=== PATIENT | male | born 1950 | race Caucasian/White ===

== ENCOUNTER 2021-04-10 09:24 | Outpatient (REF) | payer MEDICARE, SELFPAY ==
[2021-04-10 10:25] LABS: MANUAL DIFF FLAG NO
[2021-04-10 10:32] LABS: Basophils Percent Auto 0.7 % (0-2); Eosinophils Absolute Auto 0.2 X10*3/uL (0.0-0.4); Eosinophils Percent Auto 4.1 % (0-4); Hematocrit 44.1 % (42-52); Hemoglobin 15.2 g/dl (14.0-18.0); Imm Gran Abs Auto 0.04 X10*3/uL (0.00-0.03); Lymphocytes Absolute Auto 0.6 X10*3/uL (1.2-4.9); Lymphocytes Percent Auto 14.3 % (20-40); Mean Corpuscular HGB Conc 34.5 g/dl (31.0-36.0); Mean Corpuscular Volume 95.9 fL (80-98); Mean Platelet Volume 9.5 fL (9.4-12.4); Monocytes Absolute Auto 0.4 X10*3/uL (0.1-1.2); Monocytes Percent Auto 8.6 % (2-11); Neutrophils Percent Auto 71.3 % (45-73); Platelet Count 161 X10*3/uL (160-400); Red Cell Distribution Width 12.9 % (11.0-16.0); White Blood Count 4.2 X10*3/uL (4.8-10.8)
[2021-04-10 10:52] LABS: Alanine Aminotransferase 29 U/L (0-40); Albumin Level 4.4 g/dL (3.5-5.0); Alkaline Phosphatase 66 U/L (39-117); Anion Gap 14 (12-20); Aspartate Amino Transferase 32 U/L (5-37); Bilirubin Total 1.3 mg/dL (0.0-1.0); Blood Urea Nitrogen 10 mg/dL (9-16); Calcium 9.5 mg/dL (8.4-10.2); Carbon Dioxide 27 mmol/L (22-29); Chloride 106 mmol/L (96-108); Cholesterol 219 mg/dL; Estimated Glomerular Filt Rate > 60; Glucose Fasting 85 mg/dL (60-99); HDL Cholesterol 68 mg/dL; LDL Cholesterol Calculated 141 mg/dl; Potassium 4.6 mmol/L (3.3-5.1); Sodium 142 mmol/L (135-145); Total Protein 6.6 g/dL (6.5-8.0); Triglycerides 54 mg/dL
[2021-04-10 11:29] LABS: Prostate Specific Antigen Scr 4.37 ng/mL (<0.05-4.0)
== END 2021-04-10 09:25 | disposition home or self-care (01) ==
LOC: HO.10HDL 09:24
PROVIDERS: Visit Provider Internal Medicine
DX: E78.00 Pure hypercholesterolemia, unspecified (principal); N40.0 Benign prostatic hyperplasia without lower urinary tract symptoms; R63.4 Abnormal weight loss; Z12.5 Encounter for screening for malignant neoplasm of prostate
CPT/HCPCS: 36415; 80053; 80061; 84153; 85025

== ENCOUNTER 2021-11-11 07:24 | Day surgery (SDC) | payer MEDICARE, SELFPAY ==
[2021-11-04 15:16] VITALS: BMI 22.9
--- NOTE | 2021-11-10 11:48 | P.CONAN_ITS ---
HPI - Anesthesia Eval Consult details Narrative: 71yo M for Colonoscopy [facility] [place] Past Medical History Medical History (Updated 11/04/21 @ 15:16 by Ellen Steinberg, RN) Basal cell carcinoma Elevated cholesterol Surgical History Surgical History (Updated 11/04/21 @ 15:18 by Ellen Steinberg, RN) H/O colonoscopy History of back surgery Hx of Achilles tendon repair Hx of varicose vein ligation Hx of wisdom tooth extraction Social History Social History Patient Tobacco Use Status: Current everyday Tobacco user Tobacco use type: Cigarette Cigarettes Per Day: 3 Use of substances other than those prescribed or required for medical reasons: Yes Substance Use Frequency: Occasionally Are you DNR?: No Advance Directives: No Advance Directives Information Provided: Yes Meds Allergies Allergy/AdvReac Type Severity Reaction Status Date / Time No Known Allergies Allergy Mild Unverified 03/21/20 15:04 Home Medications Medication Instructions Recorded Confirmed Last Taken Type sildenafil 50 mg tablet 1 tab PO DIRECTED 11/04/21 11/04/21 Unknown History Exam Exam Date and Time: November 10, 2021 1148 Height,Weight and Vital Signs: Height 5 ft 7.75 in Weight 68.039 kg Pertinent Lab Results Pertinent Lab Results: Laboratory Tests 04/10/21 04/10/21 09:30 09:30 WBC 4.2 L Hgb 15.2 Hct 44.1 Plt Count 161 Sodium 142 Potassium 4.6 Chloride 106 Carbon Dioxide 27 BUN 10 Creatinine 0.73 Assessment and Plan Assessment Anesthesia Assessment: Chart Reviewed
[2021-11-11 07:35] VITALS: BP 158/84; PULSE 63; RESP 16; TEMP 36.4; O2SAT 98
--- NOTE | 2021-11-11 08:07 | P.CONAN_ITS ---
[facility] Past Medical History Medical History (Updated 11/04/21 @ 15:16 by Ellen Steinberg RN) Basal cell carcinoma Elevated cholesterol Family History Family history of problems with anesthesia: No Surgical History Surgical History (Updated 11/04/21 @ 15:18 by Ellen Steinberg RN) H/O colonoscopy History of back surgery Hx of Achilles tendon repair Hx of varicose vein ligation Hx of wisdom tooth extraction History of Problems with Anesthesia: No Social History Social History Patient Tobacco Use Status: Current everyday Tobacco user Tobacco use type: Cigarette Cigarettes Per Day: 3 Use of substances other than those prescribed or required for medical reasons: Yes Substance Use Frequency: Occasionally Are you DNR?: No Advance Directives: No Advance Directives Information Provided: Yes Meds Allergies Allergy/AdvReac Type Severity Reaction Status Date / Time No Known Allergies Allergy Mild Unverified 03/21/20 15:04 Active Medications: Current Medications Lactated Ringer's (Lr) 1,000 mls @ 100 mls/hr IVCONT .Q10H [facility] Home Medications Medication Instructions Recorded Confirmed Last Taken Type sildenafil 50 mg tablet 1 tab PO DIRECTED 11/04/21 11/04/21 Unknown History Exam Exam Date and Time: November 11, 2021 0807 Height,Weight and Vital Signs: Height 5 ft 7.75 in Weight 68.039 kg Last Vital Signs Temp 97.6 F 11/11/21 07:35 Pulse 63 11/11/21 07:35 Resp 16 11/11/21 07:35 BP 158/84 H 11/11/21 07:35 Pulse Ox 98 11/11/21 07:35 Airway Mallampati Class: II TM Dist: >3cm Neck ROM: Full Assessment and Plan Assessment Anesthesia Assessment: Anesthesia Plan Discussed, Smoking Cess. Discussed and Chart Reviewed Final Anesthetic Review Family History of Problems with Anesthesia: No History of Problems with Anesthesia: No NPO: Yes ASA Class: II Final Preanesthetic Review: No Changes in Pt Med Stat, Meds/Allgs Chart Reviewed, Consent Obtained/Reviewed and Anes Risks/Benef Reviewed Patient Risk: Low (O) Procedure Risk: Low Anesthetic Plan Anesthetic Plan: MAC: Disposition: Standard PACU
[2021-11-11] MEDS: Lactated Ringers 1,000 ML 100 ML IVCONT (08:16)
--- NOTE | 2021-11-11 08:42 | MHC.SHP ---
Pre-Procedural Eval Section A Date of Service: 11/11/21 Section B Chief Complaint: screening Details of Present Illness: see H&P no changes Relevant Family History (Specify if Yes): No Relevant Social History: None Present Medications: see Short Stay Collaborative assessment Medical History: No relevant PMH History of Previous Operations: No relevant previous surgery Allergies: Allergies Allergy/AdvReac Type Severity Reaction Status Date / Time No Known Allergies Allergy Mild Unverified 03/21/20 15:04 Review of Systems Sugical H&P ROS: Negative: Constitution, Cardiovascular, Respiratory, Neurological, Psychiatric, Hem-Onc, Allergic/Immunologic, Gastrointestinal, Genitourinary, Musculoskeletal, Integumentary, Endocrine and Eyes/Ears/Nose/Throat Exam Surgical H&P Exam: Normal: HEENT, Normal: Heart, Normal: Lungs, Normal: Extremities, Normal: Abdomen, Normal: Skin and Normal: Neurological Plan Diagnosis/Plan: Unchanged I have reviewed the history and physical and performed a pertinent physical examination on my patient. No changes have occurred unless specified.
[2021-11-11 09:59] VITALS: BP 106/66; PULSE 57; RESP 12; TEMP 36.4; O2SAT 98
--- NOTE | 2021-11-11 10:09 | PM.OP ---
Brief Operative Note Date of Service: 11/11/21 Pre-op diagnosis: screening Post-op diagnosis: same (colon polyps) Surgeon: Yonatan Stallings Anesthesia: MAC Was an Triple Air Valve Tester used for this Procedure?: No Estimated blood loss (mL): 2 Pathology: other (see req) Condition: stable Disposition: PACU
[2021-11-11 10:14] VITALS: BP 119/73; PULSE 58; RESP 16; O2SAT 99
[2021-11-11 10:29] VITALS: BP 128/80; PULSE 57; RESP 16; TEMP 36.3; O2SAT 99
--- NOTE | 2021-11-11 10:56 | PC.NURSE ---
PATIENT ARRIVED TO DISCHARGE AREA REPORTING LEFT EYE IRRITATION AND WATERING. PATIENT STATES HIS LEFT EYE WAS NOT LIKE THIS PRIOR TO PROCEDURE. ANESTHESIOLOGIST REQUESTED TO COME AND ACCESS PATIENT.
--- NOTE | 2021-11-11 11:06 | PC.NURSE ---
PATIENT EVALUATED PATIENT PRIOR TO HIS DISCHARGE AND PATIENT TO REPORT WORSENING SYMPTOMS. PT ALSO TOLD TO GO TO THE ED WITH ANY WORSENING SYMPTOMS.
--- NOTE | 2021-11-11 11:33 | PC.NURSE ---
DR. WARREN RE-ASSESSED PATIENT PRIOR TO DISCHARGE.
--- NOTE | 2021-11-11 20:54 | OP_ITS ---
SURGEON: Yonatan Stallings MD INDICATIONS: Colon cancer screening and prior history of adenomatous colon polyps. PREOPERATIVE DIAGNOSIS: POSTOPERATIVE DIAGNOSIS: PROCEDURE PERFORMED: Colonoscopy to the terminal ileum with snare polypectomy and biopsy. ESTIMATED BLOOD LOSS: COMPLICATIONS: ANESTHESIA: ASSISTANTS: SPECIMENS: MEDICATIONS: Monitored anesthesia care. DESCRIPTION OF PROCEDURE: History and physical were performed. The risks and benefits of the procedure were explained to the patient. Informed consent was obtained. The patient was placed in the left lateral decubitus position. A digital rectal exam was performed and was found to be normal. The Olympus pediatric video colonoscope was introduced into the rectum and advanced to the cecum without difficulty. The cecum was identified by transillumination, palpation, and identification of the ileocecal valve. Examination was performed. The scope was removed. He tolerated the procedure well and was taken to recovery area in stable condition. FINDINGS: The colon was quite tortuous and there was a lot of intestinal muscle spasm, which made the procedure extended. Multiple colonic polyps were identified and removed using a combination of snare and biopsy forceps. These were located at 120 cm, 100 cm, and 55 cm from the anal verge. The largest measured approximately 15 mm and the smallest was less than 5 mm. A fourth polyp at the right colon could not be recovered after being snared, measuring approximately 6 mm. In the rectum was a hypertrophic anal papilla, which prolapsed at the level of the anal verge. This was biopsied. The quality of the prep was good. No other polyps were identified. IMPRESSION: Colon polyps. RECOMMENDATION: Follow up the biopsy results. MD SAVI Cosby/ABL / [id number] MTDD
== END 2021-11-11 11:35 | disposition home or self-care (01) ==
PROVIDERS: PCP Internal Medicine; Visit Provider Internal Medicine Gastroenterology
PROC: 0DJD8ZZ Inspection of Lower Intestinal Tract, Via Natural or Artificial Opening Endoscopic (ICD-10-PCS; CPT 45378; principal; 2021-11-11 08:40)
DX: Z12.11 Encounter for screening for malignant neoplasm of colon (principal); Z86.010 Personal history of colon polyps; Z80.0 Family history of malignant neoplasm of digestive organs; D12.3 Benign neoplasm of transverse colon; D12.5 Benign neoplasm of sigmoid colon; K63.5 Polyp of colon; K62.89 Other specified diseases of anus and rectum; E78.00 Pure hypercholesterolemia, unspecified; R97.20 Elevated prostate specific antigen [PSA]; Z79.899 Other long term (current) drug therapy; Z85.828 Personal history of other malignant neoplasm of skin; F17.210 Nicotine dependence, cigarettes, uncomplicated; Z98.890 Other specified postprocedural states
CPT/HCPCS: 45385; 45380; 88305

== ENCOUNTER 2022-12-24 08:36 | Outpatient (REF) | payer MEDICARE, SELFPAY ==
[2022-12-24 10:38] LABS: MANUAL DIFF FLAG NO
[2022-12-24 11:06] LABS: Eosinophils Absolute Auto 0.1 X10*3/uL (0.0-0.4); Eosinophils Percent Auto 3.4 % (0-4); Hematocrit 43.2 % (42.0-52.0); Hemoglobin 15.1 g/dl (14.0-18.0); Imm Gran Abs Auto 0.03 X10*3/uL (0.00-0.03); Imm Gran Pct Auto 0.7 % (0.0-0.4); Lymphocytes Absolute Auto 0.5 X10*3/uL (1.2-4.9); Lymphocytes Percent Auto 12.4 % (20-40); Mean Corpuscular Hemoglobin 33.9 pg (27.0-33.0); Mean Corpuscular Volume 97.1 fL (80.0-98.0); Mean Platelet Volume 9.6 fL (9.4-12.4); Monocytes Absolute Auto 0.3 X10*3/uL (0.1-1.2); Monocytes Percent Auto 7.6 % (2-11); Neutrophils Absolute Auto 3.1 x10*3/uL (2.0-8.3); Neutrophils Percent Auto 74.9 % (45-73); Platelet Count 157 X10*3/uL (160-400); Red Blood Count 4.45 X10*6/uL (4.60-5.80); White Blood Count 4.1 X10*3/uL (4.8-10.8)
[2022-12-24 12:22] LABS: Prostate Specific Antigen 4.78 ng/mL (<0.05-4.0)
[2022-12-24 12:30] LABS: Alanine Aminotransferase 21 U/L (0-40); Albumin Level 4.4 g/dL (3.5-5.0); Alkaline Phosphatase 67 U/L (39-117); Anion Gap 11 (12-20); Aspartate Amino Transferase 28 U/L (5-37); Bilirubin Total 1.6 mg/dL (0.0-1.0); Blood Urea Nitrogen 9 mg/dL (9-16); Calcium 8.9 mg/dL (8.4-10.2); Carbon Dioxide 27 mmol/L (22-29); Chloride 108 mmol/L (96-108); Cholesterol 213 mg/dL; Estimated Glomerular Filt Rate > 60; Glucose Fasting 72 mg/dL (60-99); HDL Cholesterol 67 mg/dL; LDL Cholesterol Calculated 128 mg/dl; Sodium 142 mmol/L (135-145); Total Protein 6.9 g/dL (6.5-8.0); Triglycerides 90 mg/dL
== END 2022-12-24 08:37 | disposition home or self-care (01) ==
LOC: HO.10HDL 08:36
PROVIDERS: Visit Provider Internal Medicine
DX: E78.00 Pure hypercholesterolemia, unspecified (principal); R53.83 Other fatigue; R35.1 Nocturia; Z12.5 Encounter for screening for malignant neoplasm of prostate
CPT/HCPCS: 36415; 80053; 80061; 84153; 85025

== ENCOUNTER 2023-06-04 09:44 | Outpatient (REF) | payer MEDICARE, SELFPAY ==
--- NOTE | ~2023-06-04 | XR_ITS ---
EXAMINATION: XR LUMBOSACRAL SPINE CLINICAL INFORMATION: Left sciatica. COMPARISON: Radiographs dated 08/15/2005. TECHNIQUE: AP and lateral views of the lumbar spine and lateral view of the lumbosacral junction. FINDINGS: Vertebral body heights are normal. At L3-L4 and L4-L5, there is marked disc space narrowing, with vacuum phenomenon. At L5-S1, there is marked disc space narrowing, with vacuum phenomenon and a 5 mm retrolisthesis. No acute fracture or spondylolisthesis is seen. There are Schmorl's nodes of the L2 and L3 lower endplates. There is multi-level marked lumbar spondylosis and facet arthropathy. The paravertebral soft tissues are unremarkable. XR/XR lumbar spine 2-3V IMPRESSION: There is multi-level lower thoracic and lumbar degenerative disc disease, spondylosis and facet arthropathy. Degenerative disc disease is most pronounced extending from L3-L4 through L5-S1, where it is severe.
== END 2023-06-04 09:45 | disposition home or self-care (01) ==
LOC: HO.XRAY 09:44
PROVIDERS: Visit Provider Internal Medicine
DX: M54.32 Sciatica, left side (principal)
CPT/HCPCS: 72100

== ENCOUNTER 2023-07-07 08:45 | Outpatient (AMB) | payer MEDICARE, SELFPAY ==
--- NOTE | 2023-07-07 09:11 | A.SPINEOV_ITS ---
Intake Intake Visit Reasons: low back pain Intake Note: Mr. Rodriguez is here today c/o left-sided sciatica pain running down left leg. MRI done @ [facility]. 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 Vuong, Thank you for referring Ezio to our office today. He is a pleasant 73-year-old male who comes in today with a chief complaint of left-sided hip and ankle pain. He reports that his pain began abruptly 6 months ago when he awoke one morning and felt concurrent pain in his left buttocks and left ankle. He reports no inciting incident. He does have a pertinent past medical history of a cervical spinal fusion surgery done [address] Pilar otero at [facility]. He reports that bending/lifting aggravate his pain, and that lying down or standing up straight help to alleviate his symptoms. He reports he has attempted to utilize hiir-aof-tyguthh medications such as Tylenol, ibuprofen, and iqaz-mgn-wwwbmoa pain patches without significant relief of symptoms. He is currently prescribed prednisone and tramadol to help alleviate his symptoms. PMH: History of left-sided Achilles tendon repair. History of unspecified cervical spinal fusion surgery as listed above. Social hx: Patient is a former smoker, previously smoked 3 cigars per day, reports no substance use. Medications: Prednisone, tramadol. Allergies: NKDA. Physical exam: The patient has 5/5 strength in his upper and lower extremities. He reports some numbness over his left ankle that is associated with his pain symptoms. The rest of his sensation is grossly intact. His reflexes are 2+ and intact. He is able to ambulate well and rises from a seated position slowly but without notable difficulty. He has a weakly (+) Shanice's bilaterally, and a weakly (+) straight leg raise on the left. (-) Crawford's, (-) clonus. Imaging review: MRI of the lumbar spine completed at [facility] shows diffuse spondylosis of the lumbar spine. The patient has severe central canal stenosis at L3-4, L4-5. Overall loss of disc height, and severe left-sided foraminal stenosis / moderate right-sided foraminal stenosis noted at these levels. There is also a broad-based protrusion at this level consistent with a likely disc herniation. Impression: The patient is a 73-year-old male who comes in today with a chief complaint of pain in his left posterior buttocks and anterior ankle. He states that the pain began abruptly 6 months ago without any inciting incident. He reports the pain is worse when lifting/bending and is better with standing/lying down. His history and physical are most consistent with a left L5 nerve root impingement. We would like to get a CT scan of the lumbar spine to better evaluate if this impingement is due to a current or calcified herniated disc as there is some artifact at this level. Once the CT scan is obtained we will discuss the possibility of a L3-4 and L4-5 decompression with possible excision of herniated intervertebral disc. This decision will need to be made by Dr. Belcher after reviewing his imaging. Thank you for allowing us to care for your patient. The total time spent with this visit with this patient was 48 minutes reviewing history, physical exam, MRI imaging review, and implementation of treatment plan or further diagnostic testing Jair Belcher MD,PhD [facility] Orders: Orders CT lumbar spine wo IV con 07/07/23 M54.16 - Radiculopathy, lumbar region Referrals Pain Management Referral M54.16 - Radiculopathy, lumbar region Coding Level of Care Code New Pt Level 4 (85663) Diagnoses Lumbar radiculopathy M54.16
== END 2023-07-07 09:44 | disposition home or self-care (01) ==
PROVIDERS: PCP Internal Medicine; Referring Provider Internal Medicine; Visit Provider Neurological Surgery
DX: M54.16 Radiculopathy, lumbar region (principal)
CPT/HCPCS: 99204

== ENCOUNTER → 2023-07-07 08:45 | Outpatient (BNVA) | payer MEDICARE, SELFPAY | PROVIDERS: PCP Internal Medicine; Visit Provider Neurological Surgery | DX: M54.16 Radiculopathy, lumbar region (principal) | CPT/HCPCS: 99202 ==

== ENCOUNTER 2023-07-13 10:49 | Outpatient (AMB) | payer MEDICARE, SELFPAY ==
--- NOTE | 2023-07-13 10:55 | MHC.OFFVIS ---
Intake Vital Signs 07/13/23 10:57 Height 5 ft 7 in Weight 145 lb BMI 22.7 Blood Pressure Location Lt brachial Position Sitting Respiration 12 Pulse 86 Pulse Source Pulse Oximeter Pulse Oximetry (%) 98 Oxygen Delivery Method Room Air Intake Visit Reasons: Radiculopathy, lumbar region Allergies No Known Allergies Allergy (Mild, Verified 07/13/23 10:58) Medication List - Last Reconciled 07/13/23 by Jolene Topete LPN sildenafil 1 tab PO DIRECTED tramadol mg PO HPI HPI Comments History of Present Illness Details Ezio is a very pleasant 73-year-old male who presents the office today for evaluation and management of left lower back pain. Patient reports that he has been suffering with lower back pain for many years, it seemed to get worse over the summer. Then approximately 6-8 weeks ago the pain increased after he works outside in his yard raking leaves. Patient endorses left lower back pain with radiation down the left leg to the ankle. Pain is worse with sitting, bending and crossing his leg. He reports that trying to put his socks on in the morning is excruciating. Patient reports numbness and stabbing pain down the left leg. He has tried nonsteroidal anti-inflammatory medication which did not help, prednisone which did not help and tramadol which provided limited benefit for a short time. Is not able to complete physical therapy as he cannot lift his leg, cross his legs or bend over without excruciating pain. Pain today is rated as a 9/10, intermittent, worse in the morning, during the day and in the. He gets some relief from the pain when lying flat in bed. In terms of muscle damage condition is described as stabbing, sharp and numb. Pain is negatively impacting patient's internal left, general activity, work, normal work, recreational activities, walking and sitting. Recent MRI was reviewed, results as per below. Patient was evaluated by [facility] and referred here for consideration of L5 transforaminal epidural steroid injection [facility] Medical History (Updated 07/13/23 @ 11:31 by Tracy Sanders APRN, [employer]) Basal cell carcinoma Elevated cholesterol Surgical History (Updated 11/04/21 @ 15:18 by Ellen Steinberg RN) Hx of varicose vein ligation Hx of wisdom tooth extraction History of back surgery Hx of Achilles tendon repair H/O colonoscopy Social History Patient Tobacco Use Status: Current everyday Tobacco user Tobacco use type: Cigarette Cigarettes Per Day: 3 Review of Systems Const All systems reviewed & are unremarkable except as noted in HPI and below Physical Exam Vital Signs: Last Vital Signs Pulse 86 07/13/23 10:57 Resp 12 07/13/23 10:57 Pulse Ox 98 07/13/23 10:57 Oxygen Delivery Method Room Air 07/13/23 10:57 BMI result Body Mass Index 22.7 General: awake, alert, oriented. Answers questions appropriately. Fully engaged in examination. Skin: warm, dry, intact HEENT: Normocephalic. Hearing intact. Cardiac: External chest normal in appearance. Respiratory: No cough, audible wheezing or stridor. Abdomen: without gross distension. MS: No obvious swelling or deformities. Able to transition from sit to stand unassisted, slowly and purposefully Ambulates with bilaterally normal heel strike and toe off 5/5 Strength BLE Shanice + bilaterally SLR with dorsifelxion + left increased pain with forward flexion, improved with extension Nontender over PSIS Neurological: Oriented to person, place, time and situation. Thought process intact. No gait abnormalities appreciated. Psychiatric: Appropriate mood and affect. Good judgment and insight. Results Reviewed Results Reviewed: 06/11/2023 MRI LS without FINDINGS: Normal lumbar alignment is demonstrated. Moderate to advanced degenerative disc space narrowing throughout the lumbar spine present. Type I Modic changes seen across the L3-4 disc space. Type II Modic changes seen across the L4-5 and L5-S1 disc spaces. Vertebral heights are well maintained. Bone marrow signal is within normal limits, and no suspicious osseous lesion is identified. Conus medullaris is unremarkable. Paraspinal soft tissues and visualized portions of the abdomen and pelvis are unremarkable. L1-2 level reveals diffuse annular bulge and mild facet arthrosis causing mild bilateral subarticular recess narrowing. Neural foramina intact. L2-3 level reveals diffuse annular bulge and mild facet arthrosis causing moderate bilateral subarticular recess narrowing with contact of the descending nerve roots. There is moderate left neural foraminal narrowing with impingement of the exiting left nerve root. Right neural foramen intact. L3-4 level reveals broad-based protrusion and advanced facet arthrosis causing severe central canal stenosis and broad-based foraminal protrusion seen resulting in advanced bilateral neural foraminal narrowing with impingement of the exiting nerve roots bilaterally. L4-5 level reveals broad-based protrusion and advanced facet arthrosis causing severe central canal stenosis and broad-based foraminal protrusion seen resulting in advanced bilateral neural foraminal narrowing with impingement of the exiting nerve roots bilaterally. L5-S1 level reveals a broad-based disc protrusion and moderate to advanced facet arthrosis present. There is mild bilateral subarticular recess narrowing with contact of the descending nerve roots, left greater than right. Advanced bilateral neural foraminal narrowing with impingement of the exiting nerve roots bilaterally are present. IMPRESSION: 1. Moderate to advanced degenerative changes lumbar spine with multilevel advanced neural foraminal impingement and subarticular recess narrowing as described. Severe central canal stenosis L4-5 level. 2. Modic type II Modic changes seen L4-5 and L5-S1 disc spaces. 3. Modic type I changes seen across the L3-4 disc space. Assessment & Plan Assessment & Plan (1) Lumbar radiculopathy: Code(s): M54.16 - Radiculopathy, lumbar region (2) Post laminectomy syndrome: Code(s): M96.1 - Postlaminectomy syndrome, not elsewhere classified Plan Ezio is a very pleasant 73-year-old male presented to the office review management of his lower back pain. [facility] of L5 transforaminal epidural steroid injection. He has exhausted 6 months of conservative therapy including qchd-ogc-kqyqzqa medications, nonsteroidal anti-inflammatory medications, prescription medications including prescription opioid medications. He is not able to tolerate physical therapy due to the pain. Discussed options for treatment including diagnostic interventional testing, epidural steroid injections, peripheral nerve stimulation with Sprint, RFA and more permanent neuromodulation. Will schedule for fluoroscopy guided left L5 transforaminal epidural steroid injection with local anesthetic. All questions and concerns have been answered and patient agrees with the plan. Follow up after injections and sooner if needed. Coding Level of Care Code New Pt Level 4 (25980) Diagnoses Lumbar radiculopathy M54.16 Post laminectomy syndrome M96.1
[2023-07-13 10:57] VITALS: PULSE 86; RESP 12; O2SAT 98; BMI 22.7
== END 2023-07-13 11:41 | disposition home or self-care (01) ==
PROVIDERS: PCP Internal Medicine; Visit Provider Registered Nurse Emergency
DX: M54.16 Radiculopathy, lumbar region (principal); M96.1 Postlaminectomy syndrome, not elsewhere classified
CPT/HCPCS: 99204

== ENCOUNTER → 2023-07-13 10:49 | Outpatient (BNVA) | payer MEDICARE, SELFPAY | PROVIDERS: PCP Internal Medicine; Visit Provider Registered Nurse Emergency | DX: M54.16 Radiculopathy, lumbar region (principal); M96.1 Postlaminectomy syndrome, not elsewhere classified | CPT/HCPCS: 99202 ==

== ENCOUNTER 2023-07-15 07:37 | Outpatient (REF) | payer MEDICARE, SELFPAY ==
--- NOTE | ~2023-07-15 | CT_ITS ---
EXAMINATION: CT LUMBAR SPINE WITHOUT CONTRAST CLINICAL INFORMATION: Radiculopathy, lumbar region. COMPARISON: None TECHNIQUE: Helical non-contrast CT images were obtained through the lumbar spine without contrast. Multiplanar reformats were rendered and reviewed. This CT examination was performed using dose optimization techniques as appropriate, variously including the following: *Automated exposure control *Adjustment of mA and/or kV according to patient size (this includes techniques or standardized protocols for targeted exams where dose is matched to indication/reason for exam; i.e. extremities or head) *Use of iterative reconstruction technique DLP: 452 mGy-cm FINDINGS: The lumbar vertebral bodies demonstrate normal heights and alignment. There is severe disc height loss at L3-L4, L4-L5, and L5-S1 with advanced degenerative endplate changes. Multilevel prominent anterior endplate osteophytes are seen from T12 through S1. There is multilevel facet arthropathy, most advanced in the lower lumbar spine. Atheromatous changes are seen within the abdominal aorta and its branch vessels. The extraspinal soft tissues are within normal limits. The lung bases are clear. SPINAL LEVELS: L1-L2: Disc bulging asymmetric towards the left. No spinal canal stenosis. No neural foraminal stenosis. L2-L3: Disc bulging with ligament flavum infolding, facet arthropathy, and dorsal epidural fat resulting in moderate to severe spinal canal stenosis. Severe right and moderate left neural foraminal stenosis. L3-L4: Disc bulging with facet arthropathy, and ligament flavum infolding resulting in moderate to severe spinal canal stenosis and severe bilateral neural foraminal stenosis. L4-L5: Bulky disc osteophyte complex with facet arthropathy, ligament flavum infolding, dorsal epidural fat resulting in severe spinal canal stenosis and subarticular stenosis. Severe bilateral neural foraminal stenosis. L5-S1: Disc osteophyte complex with facet arthropathy resulting in left subarticular stenosis. There is osteophytic ridging versus calcified left subarticular extrusion. Mild spinal canal stenosis, and severe bilateral neural foraminal stenosis. CT/CT lumbar spine wo IV con IMPRESSION: Advanced multilevel degenerative spondylotic changes. Spinal canal stenosis appears moderate to severe at L2-L3, L3-L4, and L4-L5. Neural foraminal stenosis appears severe on the right at L2-L3, severe bilaterally at L3-L4, and severe bilaterally at L4-L5 and L5-S1.
== END 2023-07-15 07:38 | disposition home or self-care (01) ==
LOC: HO.CT 07:37
PROVIDERS: PCP Internal Medicine; Visit Provider Physician Assistant
DX: M54.16 Radiculopathy, lumbar region (principal)
CPT/HCPCS: 72131

== ENCOUNTER 2023-08-13 09:49 | Outpatient (AMB) | payer MEDICARE, SELFPAY ==
--- NOTE | 2023-08-13 09:56 | A.OFFVIS_ITS ---
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 He states that he was messing with his steelscope operator and when he went to stretch his arm outward he felt a sharp pain on his right bicep. Yet a couple days later he was moving 22 lb bag of pellets which he heard a pop in his bicep. He states that he is feeling a bit sore today. 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 He states s few days after that he was moving a 22 pound bag of pellets when he heard a pop in the right bicep. He states he is feeling a bit sore today. Patient is scheduled for an L3-4, L4-[address] Belcher on 09/14/2023. [facility] Medical History (Updated 08/13/23 @ 10:17 by Lianna Medrano) Basal cell carcinoma Elevated cholesterol Surgical History (Updated 11/04/21 @ 15:18 by Ellen Steinberg RN) Hx of varicose vein ligation Hx of wisdom tooth extraction History of back surgery Hx of Achilles tendon repair H/O colonoscopy Social History (Updated 08/13/23 @ 10:00 by Mojgan Ocasio) Alcohol intake: current Patient Tobacco Use Status: Current everyday Tobacco user Tobacco use type: Cigarette Cigarettes Per Day: 3 Review of Systems Const All systems reviewed & are unremarkable except as noted in HPI and below Physical Exam Vital Signs: BMI result Body Mass Index 22.7 Const General: cooperative and no acute distress Orientation/consciousness: patient oriented x3 Resp Effort & Inspection: normal respiratory effort and able to speak in complete sentences Cardio Peripheral pulses: Peripheral pulses 2+ throughout Skin General skin exam: no rashes or lesions noted Neuro General: patient oriented x3 Extrem Other: Right shoulder: Normal to inspection. No ecchymosis, erythema, or edema. Full shoulder ROM in all planes. Negative cross-body reach. Negative empty can. Negative drop arm. NVI. Patient has a lamine deformity. Right elbow: Normal to inspection. No ecchymosis, erythema, or edema. No tenderness to palpation over the olecranon. No tenderness to the medial or lateral epicondyle. NVI. Assessment & Plan Assessment & Plan (1) Biceps tendon tear: Comment: Right proximal bicep tendon tear Code(s): S46.219A - Strain of muscle, fascia and tendon of other parts of biceps, unspecified arm, initial encounter Plan Mr. Resendez is a 73-year-old right hand dominant male who presents in the office today, as a new patient, for an evaluation of right shoulder pain. 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 He states s few days after that he was moving a 22 pound bag of pellets when he heard a pop in the right bicep. He states he is feeling a bit sore today. Patient is scheduled for an L3-4, L4-[address] Belcher on 09/14/2023. I offered the patient physical therapy, but he has declined at this time due to having back surgery in 09/2023. I recommend for the patient to take Ibuprofen or Motrin as an anti-inflammatory at this time, however, this needs to be stopped 1 week prior to surgery. Follow up will be PRN, or sooner if needed. MRI, from [facility], of the right upper extremity, obtained on 08/03/2023, revealed: Proximal long head biceps tendon tear is partially imaged as it is at the proximal limite of the [id number]. This is likely a tendon rupture with distal retraction. If further evaluation is indicated, consider dedicated [facility] MRI. Patient Instructions: Scribed by Lianna Medrano clinical medical assistant, for Kareen Gorman PA-C on 08/13/2023 at 9:52 am, EST. Coding Level of Care Code New Pt Level 4 (55526) Diagnoses Biceps tendon tear S46.219A
[2023-08-13 10:01] VITALS: BMI 22.7
== END 2023-08-13 10:12 | disposition home or self-care (01) ==
PROVIDERS: PCP Internal Medicine; Visit Provider Physician Assistant
DX: S46.111A Strain of muscle, fascia and tendon of long head of biceps, right arm, initial encounter (principal)
CPT/HCPCS: 99204

== ENCOUNTER → 2023-08-13 09:49 | Outpatient (BNVA) | payer MEDICARE, SELFPAY | PROVIDERS: PCP Internal Medicine; Visit Provider Physician Assistant | DX: S46.219A Strain of muscle, fascia and tendon of other parts of biceps, unspecified arm, initial encounter (principal) | CPT/HCPCS: 99202 ==

== ENCOUNTER → 2023-09-03 13:40 | Outpatient (BNV) | payer MEDICARE, SELFPAY | PROVIDERS: PCP Internal Medicine; Visit Provider Internal Medicine | DX: Z01.818 Encounter for other preprocedural examination (principal) | CPT/HCPCS: 93010 ==

== ENCOUNTER 2023-09-30 10:56 | Day surgery (SDC) | payer MEDICARE, SELFPAY ==
--- NOTE | 2023-09-03 | ECG_ITS ---
Test Reason : preop Blood Pressure : / mmHG Vent. Rate : 083 BPM Atrial Rate : 083 BPM P-R Int : 138 ms QRS Dur : 086 ms QT Int : 394 ms P-R-T Axes : 084 087 065 degrees QTc Int : 462 ms Normal sinus rhythm Normal ECG When compared with ECG of 16-OCT-2008 14:47, QT has lengthened Referred By: Britany Lockhart Electronically Signed By:TANVIR CHICAS
[2023-09-03 12:59] VITALS: BP 172/83; PULSE 99; RESP 20; O2SAT 99; BMI 22.1
--- NOTE | 2023-09-03 13:19 | HO.ANESPROP2 ---
Documented by User: Britany Lockhart NP 09/20/23 15:13 HPI - Anesthesia Eval Consult details Narrative: 73yo M for L3-4, L4-5 Decompression / Foraminotomy, 09/30/23 No recent illness. No CP/SOB with very limited activity r/t pain BP elevated at PAT d/t pain. Readings WNL at PCP x 3. Remote hx of blood clot. No blood thinner for years PMFSH Active Problems Active Problems: All Active Problems (Updated 09/03/23 @ 12:53 by Ellen Steinberg RN) Biceps tendon tear (Acute) Post laminectomy syndrome (Acute) Lumbar radiculopathy (Acute) Past Medical History Medical History DVT (deep venous thrombosis) BPH (benign prostatic hyperplasia) Sciatica Basal cell carcinoma Elevated cholesterol Family History Family history of problems with anesthesia: No Surgical History Surgical History Hx of neck surgery Hx of varicose vein ligation Hx of wisdom tooth extraction Hx of Achilles tendon repair H/O colonoscopy History of Problems with Anesthesia: No Social History Social History Are you a primary home health aide caregiver to a significant other at home: No Do you presently have visiting nurse or other home services: No Alcohol intake: current Patient Tobacco Use Status: Never used Tobacco Tobacco use type: Cigar Cigarettes Per Day: 3 Years Smoked: 30 Use of substances other than those prescribed or required for medical reasons: No Have you been hit, kicked, punched, or otherwise hurt by someone within the past year? If so, by whom?: No Are you DNR?: No Advance Directives: No Advance Directives Information Provided: Yes Advance Directives on File: No Recently lost weight without trying: No Eating poorly because of decreased appetite: No Nutrition Risks: No Nutritional Risk Poor oral hygiene: No (missing teeth) Meds Allergies Allergy/AdvReac Type Severity Reaction Status Date / Time No Known Allergies Allergy Verified 09/30/23 11:12 Home Medications Medication Instructions Recorded Confirmed Last Taken Type sildenafil 50 mg tablet 1 tab PO DIRECTED 11/04/21 09/30/23 Unknown History tramadol 50 mg tablet 50 mg PO BID 01/09/2509/30/23 09/30/23 07:00 History Exam Height,Weight and Vital Signs: Height 5 ft 7 in Weight 63.957 kg Last Vital Signs Pulse 99 09/03/23 12:59 Resp 20 09/03/23 12:59 BP 172/83 H 09/03/23 12:59 Pulse Ox 99 09/03/23 12:59 O2 Del Method Room Air 09/03/23 12:59 Pertinent Lab Results Pertinent Lab Results: Lab Results 09/03/23 Range/Units 13:46 WBC 6.6 (4.8-10.8) X10*3/uL RBC 4.61 (4.60-5.80) X10*6/uL Hgb 15.3 (14.0-18.0) g/dl Hct 43.9 (42.0-52.0) % MCV 95.2 (80.0-98.0) fL MCH 33.2 H (27.0-33.0) pg MCHC 34.9 (31.0-36.0) g/dl RDW 12.6 (11.0-16.0) % Plt Count 179 (160-400) X10*3/uL MPV 9.2 L (9.4-12.4) fL Absolute Nucleated RBC 0.000 (0.0-0.012) X10*3/uL Nucleated RBC % (auto) 0.0 (0.0-0.2) /100WBC Sodium 141 (135-145) mmol/L Potassium 4.4 (3.3-5.1) mmol/L Chloride 103 (96-108) mmol/L Carbon Dioxide 29 (22-29) mmol/L Anion Gap 13 (12-20) BUN 11 (9-16) mg/dL Creatinine 0.72 (0.5-1.4) mg/dL Estim Creat Clear Calc 83.8 Estimated GFR > 60 Random Glucose 86 (60-115) mg/dL Calcium 9.7 D (8.4-10.2) mg/dL Narrative Narrative: EKG 09/2023 Vent. Rate : 083 BPM Atrial Rate : 083 BPM P-R Int : 138 ms QRS Dur : 086 ms QT Int : 394 ms P-R-T Axes : 084 087 065 degrees QTc Int : 462 ms Normal sinus rhythm Normal ECG When compared with ECG of 16-OCT-2008 14:47, QT has lengthened Airway Mallampati Class: III TM Dist: >3cm Neck ROM: Limited (s/p fusion many years ago) Loose/Missing/Broken Teeth: No (crowned molars) Heart: RRR Lungs: CTAB, prolonged expiratory Assessment and Plan Assessment Anesthesia Assessment: Anesthesia Plan Discussed, Smoking Cess. Discussed and PAT Visit Final Anesthetic Review Family History of Problems with Anesthesia: No History of Problems with Anesthesia: No Documented by User: Zi Duke MD 09/30/23 14:21 PMFSH Past Medical History Medical History DVT (deep venous thrombosis) BPH (benign prostatic hyperplasia) Sciatica Basal cell carcinoma Elevated cholesterol Surgical History Surgical History Hx of neck surgery Hx of varicose vein ligation Hx of wisdom tooth extraction Hx of Achilles tendon repair H/O colonoscopy Social History Social History Are you a primary home health aide caregiver to a significant other at home: No Do you presently have visiting nurse or other home services: No Alcohol intake: current Patient Tobacco Use Status: Never used Tobacco Tobacco use type: Cigar Cigarettes Per Day: 3 Years Smoked: 30 Use of substances other than those prescribed or required for medical reasons: No Have you been hit, kicked, punched, or otherwise hurt by someone within the past year? If so, by whom?: No Are you DNR?: No Advance Directives: No Advance Directives Information Provided: Yes Advance Directives on File: No Recently lost weight without trying: No Eating poorly because of decreased appetite: No Nutrition Risks: No Nutritional Risk Poor oral hygiene: No (missing teeth) Meds Allergies Allergy/AdvReac Type Severity Reaction Status Date / Time No Known Allergies Allergy Verified 09/30/23 11:12 Home Medications Medication Instructions Recorded Confirmed Last Taken Type sildenafil 50 mg tablet 1 tab PO DIRECTED 11/04/21 09/30/23 Unknown History tramadol 50 mg tablet 50 mg PO BID 07/07/23 09/30/23 09/30/23 07:00 History Assessment and Plan Final Anesthetic Review NPO: Yes ASA Class: III Final Preanesthetic Review: No Changes in Pt Med Stat, Meds/Allgs Chart Reviewed, Consent Obtained/Reviewed and Anes Risks/Benef Reviewed Patient Risk: Intermediate Procedure Risk: Intermediate Assessment/Block/Sedation in SS: Assess/Block/Sedation-SS Anesthetic Plan Anesthetic Plan: GA Disposition: Standard PACU
[2023-09-03 14:11] LABS: Hematocrit 43.9 % (42.0-52.0); Hemoglobin 15.3 g/dl (14.0-18.0); Mean Corpuscular HGB Conc 34.9 g/dl (31.0-36.0); Mean Corpuscular Hemoglobin 33.2 pg (27.0-33.0); Mean Corpuscular Volume 95.2 fL (80.0-98.0); Mean Platelet Volume 9.2 fL (9.4-12.4); Platelet Count 179 X10*3/uL (160-400); Red Blood Count 4.61 X10*6/uL (4.60-5.80); Red Cell Distribution Width 12.6 % (11.0-16.0); White Blood Count 6.6 X10*3/uL (4.8-10.8)
[2023-09-03 14:52] LABS: Anion Gap 13 (12-20); Blood Urea Nitrogen 11 mg/dL (9-16); Calcium 9.7 mg/dL (8.4-10.2); Carbon Dioxide 29 mmol/L (22-29); Chloride 103 mmol/L (96-108); Creatinine Clr Calc Pharmacy 83.8; Estimated Glomerular Filt Rate > 60; Glucose Random 86 mg/dL (60-115); Potassium 4.4 mmol/L (3.3-5.1); Sodium 141 mmol/L (135-145)
[2023-09-30] VITALS (8 sets, daily range): BP systolic 149–170; BP diastolic 80–90; PULSE 73–86; RESP 10–16; TEMP 36.4–36.9; O2SAT 98–100
--- NOTE | ~2023-09-30 | FL_ITS ---
EXAMINATION: XR FLUOROSCOPY WITH IMAGES CLINICAL INFORMATION: L3-L4 and L4-L5 decompression and foraminotomy. COMPARISON: Lumbar spine radiographs dated 06/04/2023. TECHNIQUE: Fluoroscopy Supervised By: Dr. Yoshi Belcher. Fluoroscopy Time: 3.3 seconds. Cumulative Dose: 1.1330 mGy. DAP: 0.4469 Gycm2. Images: 1. FINDINGS: The submitted image shows a probe of with tip situated at the posterior L5 level. FL/FL guidance in OR IMPRESSION: Intraoperative fluoroscopic guidance is provided during L3-L4 and L4-L5 decompression and foraminotomy. Please see the patient's Operative Report for full procedural details.
--- NOTE | 2023-09-30 07:08 | MHC.SHP ---
Pre-Procedural Eval Section A - 24 Hr Update-Section A only Date of Service: 09/30/23 The patient is an INPATIENT: No Changes since office visit: No Cold of Flu in the past 2 weeks, No New Medical Problems, No Changes in Medication and No Patient answered all questions The patient has been examined within 24 hours of the surgical procedure. The History & Physical has been completed within 30 days and I have reviewed it.: No Section B - Complete if H&P > 30 days Chief Complaint: Radiculopathy, lumbar region Allergies: Allergies Allergy/AdvReac Type Severity Reaction Status Date / Time No Known Allergies Allergy Verified 09/03/23 12:57 Review of Systems Sugical H&P ROS: Negative: Constitution, Cardiovascular, Respiratory, Neurological, Psychiatric, Hem-Onc, Allergic/Immunologic, Gastrointestinal, Genitourinary, Musculoskeletal, Integumentary, Endocrine and Eyes/Ears/Nose/Throat Exam Surgical H&P Exam: Not Evaluated: HEENT, Not Evaluated: Heart, Not Evaluated: Lungs, Not Evaluated: Extremities, Not Evaluated: Abdomen, Not Evaluated: Skin and Not Evaluated: Neurological Plan Diagnosis/Plan: Unchanged left L3-4,L4-5 decompression and foraminotomies Time Spent With Patient Time: Total time managing care of this patient today __6__ minutes.
--- NOTE | 2023-09-30 09:25 | PM.DS ---
DS: Providers Provider Date of Service: 09/30/23 <RAUL Patrick - Last Filed: 09/30/23 09:28> Date of discharge: 09/30/23 <RAUL Patrick - Last Filed: 09/30/23 09:28> Primary care physician: Sly Vuong MD <RAUL Patrick - Last Filed: 09/30/23 09:28> Admitting clinician: Roque Belcher <RAUL Patrick - Last Filed: 09/30/23 09:28> DS: Diagnosis Discharge Diagnosis (1) Lumbar radiculopathy: Status: Acute <RAUL Patrick - Last Filed: 09/30/23 09:28> DS: Summary Time Attestation Discharge Coordination Time (in mins): 15 <RAUL Singh - Last Filed: 09/30/23 14:41> Quality: Safe Use of Opioids Does Pt have an Active Cancer Diagnosis on the Problem List?: No <RAUL Singh - Last Filed: 09/30/23 14:41> Quality: Stroke Does the patient have a stroke diagnosis?: No <RAUL Singh - Last Filed: 09/30/23 14:41> Physical Exam Vital Signs: Vital Signs: Last Vital Signs Pulse 99 09/03/23 12:59 Resp 20 09/03/23 12:59 BP 172/83 H 09/03/23 12:59 Pulse Ox 99 09/03/23 12:59 O2 Del Method Room Air 09/03/23 12:59 BMI result Body Mass Index 22.1 <RAUL Patrick - Last Filed: 09/30/23 09:28> Discharge Plan Discharge Patient Disposition: Home, Self-Care <RAUL Patrick - Last Filed: 09/30/23 09:28> Referrals: Sly Vuong MD [Primary Care Provider] - 1 Week <RAUL Patrick - Last Filed: 09/30/23 09:28> Discharge Medications: New oxycodone 5 mg tablet 5 mg PO Q6H PRN (Reason: severe pain (scale score 7-10)) Qty: 30 0RF Rx Instructions: Partial Fill upon patient request. Continued sildenafil 50 mg tablet 1 tab PO DIRECTED Held tramadol 50 mg tablet 50 mg PO BID Hold Instructions: Resume on 10/31/23. Until oxycodone Rx is complete <RAUL Patrick - Last Filed: 09/30/23 09:28> Discharge Orders: Discharge Order (Routine); Ordered 09/30/23 Ordered By: Jair Cao <RAUL Patrick - Last Filed: 09/30/23 09:28> Diet: Advance to usual diet <RAUL Patrick - Last Filed: 09/30/23 09:28> Advance to usual diet <RAUL Singh - Last Filed: 09/30/23 14:41> Activity on Discharge: As tolerated <RAUL Patrick Last Filed: 09/30/23 09:28> As tolerated <RAUL Singh - Last Filed: 09/30/23 14:41> Activity Restrictions/Additional Instructions: After your spinal surgery we ask you to observe the following restrictions/guidelines: Activity: It is normal to feel some discomfort as you increase your activity, but that will improve with time. We ask you avoid heavy lifting or acitivities that cause pain. As a general rule, 8lbs is a safe limit for lifting right after surgery. Walk as much as you feel comfortable but not to exhaustion. You will feel extra tired the first few days after surgery. Stay well hydrated. It is OK to walk up and down stairs You may return to driving when you are off narcotics (such as vicodin, oxycodone, dilaudid, etc), and you are back to normal functional capacity. If you have any concerns please check with office before driving. Return to work is specific to each patient and each surgery, so please speak with your doctor/PA at first follow up. Please bring paperwork such as FMLA at that time if you need it filled out. Medications: For optimum pain control, it is best to start with a combination of 500 mg of Tylenol every 4 hours with 600 mg of Motrin every 8 hours, and use narcotics as needed in between for breakthrough pain. We will give you a short supply of narcotics after surgery (usually one weeks worth). If you need more please call the office but do not use more than prescribed. You will need to give our office 48 hours notice if you need narcotics refilled and we do not fill narcotics on weekends or evenings. If you are on a narcotic, it is a good idea to take a stool softener such as colace or senna to avoid constipation If you take blood thinner such as aspirin, Plavix, Coumadin, Effient, Eliquis etc for conditions such as Afib, DVT, Pulmonary embolus, coronary disease, stents etc please speak with your surgeon about specific details as to when you can resume these medications. You can resume NSAIDs on post op day 1 (eg: Motrin, Naproxen, etc). Follow up: Please call the office, , after surgery to arrange a 3 week follow up for wound check. Wound Care: You may remove your dressing on the first day after surgery. ?You may ?leave open to air. Please do not remove the steri strips underneath. they will fall off on their own in one week. IT IS NORMAL FOR THE WOUND TO OOZE OR BE BLOODY FOR A FEW DAYS AFTER SURGERY. ?IF THIS HAPPENS JUST PLACE NEW DRESSING OVER IT TO AVOID STAINING CLOTHES. You may shower on post op day # 1 We ask that you do not let the water soak the wound. If it does get wet, just towel dry lightly. Please do not scrub your incision or place any type of chemical/ointment on the wound. No tub baths, pools or jacuzzis for one month. If you have any leaking or redness from your wound, or fevers, please call office <RAUL Patrick - Last Filed: 09/30/23 09:28>
[2023-09-30] MEDS: methocarbamoL 750 MG TABLET PO (11:30)
[2023-09-30] MEDS: Gabapentin 300 MG CAPSULE PO (11:30)
[2023-09-30] MEDS: Lactated Ringers 1,000 ML 100 ML IVCONT (11:39)
--- NOTE | 2023-09-30 14:17 | W.PM.OPN ---
Operative Note Operative Note Date of Service: 09/30/23 Narrative: Preoperative Diagnosis: L3-4 for spinal stenosis/lateral recess stenosis/neural foraminal stenosis Operation: L3 L4, L4-5 Laminotomy, Partial facetectomy and foraminotomy with use of microscope Consent Informed Consent was obtained for this operation. I have explained the nature, purpose and benefits of the operation. I have discussed the risks and benefit of the operation including possible complications or adverse events with patient/family. Alternative(s) were discussed with the patient with their relative benefits and risks as well as the consequences of not accepting the operation were included in obtaining consent. Surgeon: IRVIN STONER MD, PHD Procedure Assisted By: Jair Cao, Eugene Description of Procedure This patient is suffering from left lumbar radiculopathy from his buttock to the top of his foot. CT scan shows L3-4 and L4-5 spinal stenosis and more importantly a left L4 and L5 foraminal stenosis. The patient was offered a decompression. The procedure complications were explained. The patient was consented ( of note, the consent mentions L3 and L4 foraminotomy but this needs to be L4 and L5 after review of the CT scan. The patient was brought to the operating room and endotracheally intubated. The patient was turned in prone position on the Elvis frame. Prep and drape was done followed by timeout. The Physician commercial real estate assistant provided access. A mid lumbar incision was made followed by release of the paravertebral muscle on the left side to expose the L3-L5 laminae and facet joints. An intraoperative x-ray was obtained to confirm the correct level. The microscope was brought in. I took over the procedure. The high-speed drill was used to do a left L3-4 and L4-5 laminotomy until flavum ligament was reached. A #2 Kerrison was used to expand the laminotomy near flush to the pedicles and to include a partial facetectomy. The flavum ligament was opened and resected with a #3 Kerrison to decompress the underlying thecal sac. The flavum ligament was removed to decompress the lateral recess and the exiting L4 and L5 nerve roots. A thorough L4 and L5 foraminotomy was done to decompress the nerve roots in the foramen. Severe foraminal stenosis is present both levels. A long nerve hook could be easily passed along the medial side of the pedicles and into the foramina as a sign of adequate decompression. The microscope was removed. Hemostasis was done. The physician commercial real estate assistant close the Incision in 2 layers. Steri-Strips were used to approximate incision. An OpSite with Tegaderm was used to cover the incision. All sponge needle counts were correct. Patient was extubated and transported in stable is to recovery room. Anesthesia: General Estimated Blood Loss (ml): 35 mL Complications: None Duration of Surgery: Under 60 Minutes Postoperative Plan: Discharge to home
== END 2023-09-30 16:15 | disposition home or self-care (01) ==
LOC: HO.SSS 10:57
PROVIDERS: Nurse Practitioner; PCP Internal Medicine; Visit Provider Neurological Surgery
PROC: (CPT 63047; principal; 2023-09-30 14:10)
DX: M54.16 Radiculopathy, lumbar region (principal); M48.061 Spinal stenosis, lumbar region without neurogenic claudication; M54.50 Low back pain, unspecified; M54.32 Sciatica, left side; Z98.1 Arthrodesis status; Z79.899 Other long term (current) drug therapy; Z98.890 Other specified postprocedural states; Z87.891 Personal history of nicotine dependence
CPT/HCPCS: 63047; 63048; 36415; 80048; 85027; 93005; J0131; J0690; J1100; J1885; J2405; J2704; J3010

== ENCOUNTER → 2023-09-30 10:56 | Outpatient (BNV) | payer MEDICARE, SELFPAY | PROVIDERS: PCP Internal Medicine; Visit Provider Neurological Surgery | DX: M54.16 Radiculopathy, lumbar region (principal) | CPT/HCPCS: 63047; 63048; 99499 ==

== ENCOUNTER 2023-10-22 09:47 | Outpatient (AMB) | payer MEDICARE, SELFPAY ==
--- NOTE | 2023-10-22 09:58 | A.SPINEOV_ITS ---
Intake Visit Reasons: 1st post op Intake Note: Mr. Resendez is here today for his 1st Post-op appointment. Online Content Coordinator Required: No Allergies No Known Allergies Allergy (Verified 10/22/23 09:58) Assessment & Plan Assessment & Plan (1) Status post lumbar spine surgery for decompression of spinal cord: Code(s): Z98.890 - Other specified postprocedural states Category: Surgical Plan Procedure: L3 L4, L4-5 lumbar decompression Eizo comes in today for his 1st postoperative visit. He reports he is satisfied with the surgery and feels better than he did pre-operatively. The patient reports he is up walking around and completing the majority of his ADLs. He does still have some residual pain in his left anterior thigh and left posterior buttocks, but states this continues to improve gradually alongside his back pain. No new neurological deficits. Patient is able to ambulate well, rises from a seated position without difficulty. Incision site is closed, well healing, with no signs of drainage. Ezio is healing very well from an uncomplicated surgery. He may be discharged as a patient and can follow-up on an as-needed basis. Jair Belcher MD,PhD [facility]
== END 2023-10-22 10:41 | disposition home or self-care (01) ==
PROVIDERS: PCP Internal Medicine; Visit Provider Physician Assistant
DX: Z98.890 Other specified postprocedural states (principal)
CPT/HCPCS: 99024

== ENCOUNTER → 2023-10-22 09:47 | Outpatient (BNVA) | payer MEDICARE, SELFPAY | PROVIDERS: PCP Internal Medicine; Visit Provider Physician Assistant | DX: Z48.89 Encounter for other specified surgical aftercare (principal); Z98.890 Other specified postprocedural states | CPT/HCPCS: 99212 ==

== ENCOUNTER 2023-10-29 11:14 | Outpatient (AMB) | payer MEDICARE, SELFPAY ==
--- NOTE | 2023-10-29 11:16 | HO.SPINEOV ---
Intake Visit Reasons: evaluation for incision site Intake Note: Mr. Boss is here today for evaluation of incision site. Corrugated Fastener Driver Required: No Allergies No Known Allergies Allergy (Verified 10/29/23 11:16) Assessment & Plan Assessment & Plan (1) Status post lumbar spine surgery for decompression of spinal cord: Code(s): Z98.890 - Other specified postprocedural states Category: Medical Plan Procedure: L3-L4, L4-5 lumbar decompression Ezio comes in today for a subsequent follow-up visit. He reports that over the course of the last week or so he feels as though there has been some increased swelling in his low back. I evaluated this issue today in clinic, and it appears the area he is concerned about is his left latissimus dorsi. I informed him that this likely has nothing to do with his the surgery which has an incision site near the mid lumbar spine. Additionally, he asked information regarding golfing. I encouraged him to refrain from doing this due to the twisting motion involved until he is at least 3 months postop. No new neurological deficits. Patient is able to ambulate well, rises from a seated position without difficulty. His incision site looks good and appears to be well healing. Ezio will be seen again in 2 months to evaluate for postoperative healing course as his incision is not fully healed as of yet. Jair Belcher MD,PhD [facility] Coding Level of Care Code Global (35010) Diagnoses Status post lumbar spine surgery for decompression of spinal cord Z98.890
== END 2023-10-29 11:51 | disposition home or self-care (01) ==
PROVIDERS: PCP Internal Medicine; Visit Provider Physician Assistant
DX: Z98.890 Other specified postprocedural states (principal)
CPT/HCPCS: 99024

== ENCOUNTER → 2023-10-29 11:14 | Outpatient (BNVA) | payer MEDICARE, SELFPAY | PROVIDERS: PCP Internal Medicine; Visit Provider Physician Assistant | DX: Z48.89 Encounter for other specified surgical aftercare (principal) | CPT/HCPCS: 99212 ==

== ENCOUNTER 2023-12-23 11:35 | Outpatient (REF) | payer MEDICARE, SELFPAY ==
--- NOTE | ~2023-12-23 | US_ITS ---
EXAMINATION: US VENOUS ULTRASOUND WITH DOPPLER LOWER EXTREMITY, RIGHT CLINICAL INFORMATION: Right lower extremity edema COMPARISON: None available. TECHNIQUE: Ultrasound of the deep veins is performed from the hip to the calf with compression sonography and color and pulse Doppler assessment. Spectral analysis with color-flow imaging is performed. FINDINGS: There is extensive acute DVT right lower extremity present with thrombus seen in the posterior tibial veins and peroneal veins as well as the gastrocnemius vein extending into the popliteal vein, femoral vein, profunda femoris vein and common femoral vein. US/US venous duplex LE RT IMPRESSION: Extensive acute DVT throughout the entire right lower extremity. These results were communicated with Dr. Vuong at 12:11 PM by the supervisor scrap preparation and the patient was transported directly to the emergency room per Dr. Vuong's instructions.
== END 2023-12-23 11:36 | disposition home or self-care (01) ==
LOC: HO.US 11:35
PROVIDERS: PCP Internal Medicine; Visit Provider Internal Medicine
DX: Z13.89 Encounter for screening for other disorder (principal)
CPT/HCPCS: 93971

== ENCOUNTER 2023-12-23 12:25 | Inpatient (IN) | payer MEDICARE, SELFPAY ==
[2023-12-23 12:28] VITALS: BP 173/88; PULSE 76; RESP 9; TEMP 36.1; O2SAT 99; BMI 21.9
--- NOTE | 2023-12-23 12:29 | ED.LOWEXIN ---
HPI - Extremity Injury (Lower) General Chief Complaint: Extremity Injury, Lower Stated Complaint: DVT right leg Time Seen by Provider: 12/23/23 13:22 Source: patient Mode of arrival: ambulatory Limitations: no limitations History of Present Illness ED Provider: Dr. Nery Luna HPI Narrative: Patient comes to the emergency room complaining of pain and swelling in the right lower extremity for 2 days. Patient states that he has been less active than usual, states that approximately 3 months ago he had back surgery for sciatica and since then he has not been as active as he was. Patient states that earlier today he went to see his primary care physician who ordered an ultrasound of the leg. Patient was asked to come to the emergency room since the ultrasound as positive for a DVT. Related Data Home Medications ?Medication ?Instructions ?Recorded ?Confirmed sildenafil 50 mg tablet 1 tab PO DIRECTED 11/04/21 09/30/23 tramadol 50 mg tablet 50 mg PO BID 07/07/23 09/30/23 Previous Rx's ?Medication ?Instructions ?Recorded oxycodone 5 mg tablet 5 mg PO Q6H PRN severe pain (scale 10/07/23 score 7-10) #30 tabs Allergies Allergy/AdvReac Type Severity Reaction Status Date / Time No Known Allergies Allergy Verified 12/23/23 12:31 Review of Systems Review of Systems: Constitutional : No Weight loss, No Fever, No Chills, No Night Sweats, No Fatigue, No Malaise ENT/Mouth : No Hearing loss, No Ear Pain, No Nasal Congestion, No Sinus Pain, No Hoarseness, No sore throat, No Rhinorrhea, No Swallowing Difficulty Eyes: No Eye Pain, No Swelling, No Redness, No Foreign Body, No Discharge, No Vision Changes Cardiovascular : No Chest Pain, No SOB, No Dyspnea on Exertion, No Orthopnea, No Edema, No Palpitations Respiratory : No Cough, No Sputum, No Wheezing, No Smoke Exposure, No Dyspnea Gastrointestinal : No Nausea, No Vomiting, No Diarrhea, No Constipation, No abdominal Pain, No Hematochezia, No Melena Genitourinary : no irregular bleeding, No Dysuria, No Urinary Frequency, No Hematuria, No Urinary Incontinence, No Urgency, No Flank Pain, No Urinary Flow Changes, No Hesitancy Musculoskeletal : Complaining of right lower extremity pain and swelling Skin : No Skin Lesions, No rash Neuro : No Weakness, No Numbness, No Paresthesias, No Loss of Consciousness, No Dizziness, No Headache Psych : No Anxiety/Panic, No Depression, No SI/HI/AH/VH, No Social Issues, Heme/Lymph: No Bruising, No Bleeding,No Lymphadenopathy Endocrine : No Polyuria, No Polydipsia, No Temperature Intolerance [facility] Past Medical History Medical History DVT (deep venous thrombosis) BPH (benign prostatic hyperplasia) Sciatica Basal cell carcinoma Elevated cholesterol Surgical History Hx of neck surgery Hx of varicose vein ligation Hx of wisdom tooth extraction Hx of Achilles tendon repair H/O colonoscopy Social History Social History Are you a primary life care planner to a significant other at home: No Do you presently have visiting nurse or other home services: No Alcohol intake: current Patient Tobacco Use Status: Never used Tobacco Tobacco use type: Cigar Cigarettes Per Day: 3 Years Smoked: 30 Physical Exam Vital Signs: Vital Signs: Last Vital Signs Temp 97 F 12/23/23 12:28 Pulse 76 12/23/23 12:28 Resp 9 L 12/23/23 12:28 BP 173/88 H 12/23/23 12:28 Pulse Ox 99 12/23/23 12:28 O2 Del Method Room Air 12/23/23 12:28 BMI result Body Mass Index 21.9 Const: Other: Appearance: Alert. Oriented X3. No acute distress. Eyes: Pupils equal, round and reactive to light. ENT: Pharynx normal. Neck: Normal inspection. Neck supple. No lymph nodes noted. No crepitus CVS: Normal heart rate and rhythm. Pulses normal. Normal S1 and S2 Respiratory: No respiratory distress. Breath sounds normal. No Wheezing. No rales Abdomen: Soft and nontender. No rigidity. No distention. Skin: Skin warm and dry. Normal skin color. Normal skin turgor. Extremities: Nonpitting edema +2 in right lower extremity, mild pain to palpation in the calf, left lower extremity within normal limits. Neuro: Oriented X 3. No motor deficit. No sensory deficit. Moving all extremities. No slurred speech. CN 2 through 12 grossly intact Psych: calm, cooperative, normal affect Course Course Course Narrative: This is a Rapid Medical Exam performed in triage by Stephy Alejandro PA-C. Full HPI, ROS and PE to be performed by primary ED provider. 73 year-old w/ PMHx presenting to the ED c/o RLE swelling, pain & tingling x few days. Admits to history of DVT many years ago, not currently on anticoagulation. Denies history of GI bleed or ICH. Came from [place] and told he had a blood clot. denies travel, cigarrette smoking, SOB PE: RLE with pitting edema. Plan: Labs Medical Decision Making Medical Decision Making [facility] Narrative: -my interpretation of labs: Normal white blood cell count, hemoglobin and hematocrit and platelets, normal chemistry -ultrasound done earlier today shows extensive acute DVT through the entire right lower extremity -I discussed the above-mentioned with Dr. Jewell of vascular surgery, we will start patient on heparin and admit the patient for a blood clot retrieval procedure -I discussed the patient with Dr. Leggett, patient accepted the patient to the medicine service -patient agreeable with the above-mentioned. At this time, patient has no chest pain or shortness of breath, no tachycardia . Pulmonary embolism is not suspected at this time. Patient will be started on heparin shortly and admitted Differential Diagnosis Differential Diagnoses: The differential diagnosis associated with the presentation includes (DVT, venous insufficiency) Admission/Observation Consideration of admission/observation: Escalation of care including admission/observation considered Consult Healthcare Provider Management of the patient was discussed with: Hospitalist and Parquetry Layer Lab Data [facility] Lab Attestation statement: I reviewed the patient's lab results. 12/23/23 12:43 12/23/23 12:43 Labs: Lab Results 12/23/23 Range/Units 12:43 WBC 5.8 (4.8-10.8) X10*3/uL RBC 4.08 L (4.60-5.80) X10*6/uL Hgb 14.0 (14.0-18.0) g/dl Hct 38.7 L (42.0-52.0) % MCV 94.9 (80.0-98.0) fL MCH 34.3 H (27.0-33.0) pg MCHC 36.2 H (31.0-36.0) g/dl RDW 13.0 (11.0-16.0) % Plt Count 213 (160-400) X10*3/uL MPV 9.1 L (9.4-12.4) fL Immature Gran % (Auto) 1.4 H (0.0-0.4) % Neut % (Auto) 77.6 H (45-73) % Lymph % (Auto) 9.0 L (20-40) % [place] % (Auto) 9.4 (2-11) % Eos % (Auto) 1.9 (0-4) % Baso % (Auto) 0.7 (0-2) % Lymph # (Auto) 0.5 L (1.2-4.9) X10*3/uL [place] # (Auto) 0.5 (0.1-1.2) X10*3/uL Eos # (Auto) 0.1 (0.0-0.4) X10*3/uL Baso # (Auto) 0.0 (0.0-0.2) X10*3/uL Abs Immat Gran (auto) 0.08 H (0.00-0.03) X10*3/uL Absolute Neuts (auto) 4.5 (2.0-8.3) x10*3/uL Absolute Nucleated RBC 0.000 (0.0-0.012) X10*3/uL Nucleated RBC % (auto) 0.0 (0.0-0.2) /100WBC PT 14.0 H (11.1-13.3) SEC INR 1.2 H (0.9-1.1) APTT 33.3 (26.0-36.8) SEC Sodium 140 (135-145) mmol/L Potassium 4.4 (3.3-5.1) mmol/L Chloride 103 (96-108) mmol/L Carbon Dioxide 28 (22-29) mmol/L Anion Gap 13 (12-20) BUN 11 (9-16) mg/dL Creatinine 0.66 (0.5-1.4) mg/dL Estim Creat Clear Calc 90.8 Estimated GFR > 60 Random Glucose 90 (60-115) mg/dL Calcium 9.4 (8.4-10.2) mg/dL Independent Interpretation I performed an independent interpretation of an: Ultrasound Radiology Impression Discussion of test interpretation with radiology: I have reviewed the radiologist's reading. Radiologist Impression: FINDINGS: There is extensive acute DVT right lower extremity present with thrombus seen in the posterior tibial veins and peroneal veins as well as the gastrocnemius vein extending into the popliteal vein, femoral vein, profunda femoris vein and common femoral vein. Critical Care Time Critical Care Time Critical Care Time: Yes Total Critical Care Time: 45 Attestation: I have personally provided critical care time. Time includes review of lab data, radiology results, discussion with consultants, and monitoring for potential decompensation. Intervention performed as documented. Discharge Plan Discharge Clinical Impression: DVT (deep venous thrombosis) Patient Disposition: Admitted As Inpatient Prescriptions: No Action oxycodone 5 mg tablet 5 mg PO Q6H PRN (Reason: severe pain (scale score 7-10)) Qty: 30 0RF Rx Instructions: Partial Fill upon patient request. sildenafil 50 mg tablet 1 tab PO DIRECTED tramadol 50 mg tablet 50 mg PO BID Hold Instructions: Resume on 10/31/23. Until oxycodone Rx is complete Print Language: Gambian
--- NOTE | 2023-12-23 12:44 | PC.NURSE ---
labs drawn by tech in triage
[2023-12-23 12:48] LABS: MANUAL DIFF FLAG NO
[2023-12-23 12:49] LABS: Basophils Percent Auto 0.7 % (0-2); Eosinophils Absolute Auto 0.1 X10*3/uL (0.0-0.4); Eosinophils Percent Auto 1.9 % (0-4); Hematocrit 38.7 % (42.0-52.0); Imm Gran Abs Auto 0.08 X10*3/uL (0.00-0.03); Imm Gran Pct Auto 1.4 % (0.0-0.4); Lymphocytes Absolute Auto 0.5 X10*3/uL (1.2-4.9); Mean Corpuscular HGB Conc 36.2 g/dl (31.0-36.0); Mean Corpuscular Hemoglobin 34.3 pg (27.0-33.0); Mean Corpuscular Volume 94.9 fL (80.0-98.0); Mean Platelet Volume 9.1 fL (9.4-12.4); Monocytes Absolute Auto 0.5 X10*3/uL (0.1-1.2); Monocytes Percent Auto 9.4 % (2-11); Neutrophils Absolute Auto 4.5 x10*3/uL (2.0-8.3); Neutrophils Percent Auto 77.6 % (45-73); Platelet Count 213 X10*3/uL (160-400); Red Blood Count 4.08 X10*6/uL (4.60-5.80); White Blood Count 5.8 X10*3/uL (4.8-10.8)
[2023-12-23 12:55] LABS: INTERNATIONAL NORM RATIO 1.2 (0.9-1.1)
[2023-12-23 12:57] LABS: Partial Thromboplastin Time 33.3 SEC (26.0-36.8)
[2023-12-23 13:04] LABS: Anion Gap 13 (12-20); Blood Urea Nitrogen 11 mg/dL (9-16); Calcium 9.4 mg/dL (8.4-10.2); Carbon Dioxide 28 mmol/L (22-29); Chloride 103 mmol/L (96-108); Creatinine Clr Calc Pharmacy 90.8; Estimated Glomerular Filt Rate > 60; Glucose Random 90 mg/dL (60-115); Potassium 4.4 mmol/L (3.3-5.1); Sodium 140 mmol/L (135-145)
--- NOTE | 2023-12-23 13:52 | P.HPHOSP_ITS ---
History of Present Illness Date of Service: 12/23/23 Chief Complaint: Right leg swelling and pain 73 year old male with history of left lower extremity DVT 30 years ago took anticoaglation at that time and other history as stated below. He presents today with pain, swelling of the right leg for 2 to 3 days now, no injury, no imobility, no long journeys recent. He has no shortness of breath or chest pain or hypoxia. US shows extensive right lower extremity DVT. He is being initiated on IV heparin and vascular surgery is planning decloting tomorrow. Review of Systems 2 Review of Systems: pain and swelling in the right lower extremity Yes all other systems are reviewed and are negative [facility] Medical History DVT (deep venous thrombosis) BPH (benign prostatic hyperplasia) Sciatica Basal cell carcinoma Elevated cholesterol Surgical History Hx of neck surgery Hx of varicose vein ligation Hx of wisdom tooth extraction Hx of Achilles tendon repair H/O colonoscopy Social History Household Members: Spouse Housing: House Are you a primary skin care consultant to a significant other at home: No Do you presently have visiting nurse or other home services: No Alcohol intake: current Patient Tobacco Use Status: Current everyday Tobacco user Tobacco use type: Cigar Cigarettes Per Day: 3 Years Smoked: 30 Smoked in Last 30 Days: Yes Patient Interested in Nicotine Replacement: No Patient Given Instructions on How to Stop Smoking: No Second Hand Smoke Exposure: No Use of substances other than those prescribed or required for medical reasons: No Currently Displaying Signs/Symptoms of Drug Intoxication Withdrawal: No Any prior treatment program specific to substance use: No Have you been hit, kicked, punched, or otherwise hurt by someone within the past year? If so, by whom?: No Do you feel safe in your current relationship?: Yes Is there a partner from a previous relationship who is making you feel unsafe now?: No Are you made to feel afraid or neglected: No Advance Directives: No Advance Directives Information Provided: Yes Advance Directives on File: No Do you have a plan to hurt others: No Plan Recently lost weight without trying: No Nutrition Risks: No Nutritional Risk Poor oral hygiene: No Meds Allergies Allergy/AdvReac Type Severity Reaction Status Date / Time No Known Allergies Allergy Verified 12/23/23 12:31 Active Medications: Current Medications Heparin Sodium (Porcine) (Heparin Sodium,Porcine 5,000 Unit/Ml Vial) 5,100 unit 80 unit/kg (5100 unit) IVPUSH PROTOCOL BOLUS PRN; Protocol PRN Reason: 80 unit/kg - Heparin Protocol Heparin Sodium (Porcine) (Heparin Sodium,Porcine 5,000 Unit/Ml Vial) 2,500 unit 40 unit/kg (2500 unit) IVPUSH PROTOCOL BOLUS PRN; Protocol PRN Reason: 40 unit/kg - Heparin Protocol Heparin Sodium/Sodium Chloride (Heparin Sodium,Porcine/1/2ns) 25,000 unit in 250 mls @ 0 mls/hr IVCONT .Q0M [facility]; Protocol Home Medications ?Medication ?Instructions ?Recorded ?Confirmed ?Last Taken ?Type No Known Home Meds 12/23/23 12/23/23 Unknown History Physical Exam 2 Vital Signs and Narrative: Vital Signs: Last Vital Signs Temp 97 F 12/23/23 12:28 Pulse 76 12/23/23 12:28 Resp 9 L 12/23/23 12:28 BP 173/88 H 12/23/23 12:28 Pulse Ox 99 12/23/23 12:28 O2 Del Method Room Air 12/23/23 12:28 BMI result Body Mass Index 21.9 Constitutional: Alert, in no distress, overweight. Mental Status: Oriented to person, place and time. Eyes: Pupils are equal, round and reactive to light. Ear, Nose and Throat: Oropharynx clear, mucous membranes moist. Ears and nose without eformities. Trachea midline. Respiratory: Clear to auscultation. No wheezing, rales or rhonchi. Cardiovascular: S1 S2 regular. No murmurs, rubs or gallops. Gastrointestinal: Abdomen soft, non-tender, non-distended. Normal bowel sounds.? Neurologic: Cranial nerves II-XII grossly intact. No focal neurological deficits. Moves all extremities spontaneously.? Skin: No rashes or lesions.? Musculoskeletal: No cyanosis or clubbing. Psychiatric: Normal mood and affect? Results Labs 12/23/23 12:43 12/24/23 05:35 Labs: Laboratory Results - last 24 hr 12/23/23 12:43 MCV 94.9 MCH 34.3 H MCHC 36.2 H RDW 13.0 Plt Count 213 MPV 9.1 L Immature Gran % (Auto) 1.4 H Neut % (Auto) 77.6 H Lymph % (Auto) 9.0 L [place] % (Auto) 9.4 Eos % (Auto) 1.9 Baso % (Auto) 0.7 Lymph # (Auto) 0.5 L [place] # (Auto) 0.5 Eos # (Auto) 0.1 Baso # (Auto) 0.0 Abs Immat Gran (auto) 0.08 H Absolute Neuts (auto) 4.5 Absolute Nucleated RBC 0.000 Nucleated RBC % (auto) 0.0 PT 14.0 H INR 1.2 H APTT 33.3 Anion Gap 13 Estim Creat Clear Calc 90.8 Estimated GFR > 60 Random Glucose 90 Calcium 9.4 Assessment and Plan (1) DVT (deep venous thrombosis): Qualifiers: Affected thrombotic vein of extremity: femoral Chronicity: acute DVT location: lower extremity Laterality: right Qualified Code(s): I82.411 - Acute embolism and thrombosis of right femoral vein Status: Acute Plan 73 year old male with history of left lower extremity DVT 30 years ago took anticoaglation at that time here with right leg swelling and has extensive acute DVT throughout the entire right lower extremity plan: IV heparin, surgical decloting today, will need life time anticogulation (check with hamatology), . Has no pulmonary symptoms and therefore no imaging at this time. admission for at least 2 midngight fo management with IV heparin for acute extensive dvt, and need for intervention to retrieve clots. DVT prophylaxis: IV heparin Full code Quality Stroke Does the patient have a stroke diagnosis?: No VTE Prior VTE?: No VTE Risk Level:: Medical - moderate - high VTE Device Contraindication: N/A - Device Ordered VTE Drug Contraindication: N/A - Med Ordered
[2023-12-23 13:53] VITALS: BP 168/91; PULSE 71; RESP 15; O2SAT 96
[2023-12-23] MEDS: Heparin Sodium,Porcine 5,000 UNIT/ML VIAL 5000 UNIT IVPUSH (14:10)
[2023-12-23] MEDS: Heparin Sodium,Porcine/1/2NS 25,000 UNIT/250 ML IV.SOLN 8.89 UNIT IVCONT (14:11)
--- NOTE | 2023-12-23 14:12 | PC.NURSE ---
pt comes to ED 21 from [facility] 2. Heparin drip confirmed with pharmacy, drip started. NSR on tele. denies SOB. pt reports inactivity over the last couple of months since having lumbar surgery.
--- NOTE | 2023-12-23 14:13 | PHA.MEDREC ---
Pharmacy Consult ? Medication Reconciliation Pharmacy has completed the medication reconciliation. Went down to speak with patient. He stated to me that he is not currently on anything. He was prescribed Tramadol 50 but stopped taking it when he had surgery a few months ago, patient denies using any creams at the moment. Patient stated he has not had to use his Sildenafil in a while.
[2023-12-23 16:00] VITALS: BP 148/75; PULSE 70; RESP 14; TEMP 36.2; O2SAT 99
--- NOTE | 2023-12-23 16:02 | PM.CNGS ---
History of Present Illness Consult details Consult date: 12/23/23 Reason for consult: other (dvt) Narrative: Very pleasant 73-year-old gentleman presents for evaluation regarding DVT. He had lumbar spine surgery for decompression of the spinal cord for sciatica. Reports he was somewhat sedentary after the operation which was done by Dr. Helm. He developed a new onset DVT of the right lower extremity. Upon discussion with him at around the age of 41 he did have a left lower extremity DVT after Achilles tendon tear. He has been doing well since. He was not on any anticoagulants at the current time. He reported us tight swelling of the right thigh which caused him concern and he was sent over for ultrasound by his primary care doctor. Upon discovery of this he was admitted through the emergency room on a heparin drip. Of note he has no prior history IVC filter or stenting. In addition his only cancer history is of a basal cell carcinoma. Review of Systems Review of Systems: Yes all other systems are reviewed and are negative Constitutional: Constitutional: Reports no additional constitutional complaints ENT: Reports Normal hearing present Cardiovascular: Cardiovascular: Denies chest pain, Denies chest pain at rest, Denies chest pain with activity and Denies pedal edema Respiratory: Respiratory: Denies cough Gastrointestinal: Gastrointestinal: Denies abdominal pain Musculoskeletal: Musculoskeletal: Denies abnormal gait, Denies muscle cramps and Denies radiating pain into limb Integumentary/Breasts: Skin/Breast: Denies skin ulcer and Denies wounds Neurologic: Reports Normal hearing present and Denies abnormal gait Psychiatric: Psychiatric: Reports no additional psychiatric complaints PMFSH Past Medical History Medical History DVT (deep venous thrombosis) BPH (benign prostatic hyperplasia) Sciatica Basal cell carcinoma Elevated cholesterol Surgical History Surgical History Hx of neck surgery Hx of varicose vein ligation Hx of wisdom tooth extraction Hx of Achilles tendon repair H/O colonoscopy Social History Social History Are you a primary career technology teacher to a significant other at home: No Do you presently have visiting nurse or other home services: No Alcohol intake: current Patient Tobacco Use Status: Never used Tobacco Tobacco use type: Cigar Cigarettes Per Day: 3 Years Smoked: 30 Smoked in Last 30 Days: Yes Use of substances other than those prescribed or required for medical reasons: No Advance Directives: No Advance Directives Information Provided: Yes Meds Allergies Allergy/AdvReac Type Severity Reaction Status Date / Time No Known Allergies Allergy Verified 12/23/23 12:31 Active Medications: Current Medications Acetaminophen (Acetaminophen 325 Mg Tablet) 650 mg PO Q6H PRN PRN Reason: Pain, Mild (Pain Scale 1-3), fever or headache Calcium Carbonate (Calcium Carbonate 750 Mg Tab.Chew) 750 mg PO Q4H PRN PRN Reason: Heartburn Heparin Sodium (Porcine) (Heparin Sodium,Porcine 5,000 Unit/Ml Vial) 5,100 unit 80 unit/kg (5100 unit) IVPUSH PROTOCOL BOLUS PRN; Protocol PRN Reason: 80 unit/kg - Heparin Protocol Heparin Sodium (Porcine) (Heparin Sodium,Porcine 5,000 Unit/Ml Vial) 2,500 unit 40 unit/kg (2500 unit) IVPUSH PROTOCOL BOLUS PRN; Protocol PRN Reason: 40 unit/kg - Heparin Protocol Heparin Sodium/Sodium Chloride (Heparin Sodium,Porcine/1/2ns) 25,000 unit in 250 mls @ 0 mls/hr IVCONT .Q0M [facility]; Protocol Last Admin: 12/23/23 14:11 Dose: 14 units/kg/hr, 8.89 mls/hr Magnesium Hydroxide (Milk Of Magnesia 30 Ml Oral.Susp) 30 ml PO DAILY PRN PRN Reason: Constipation Melatonin (Melatonin 3 Mg Tablet) 6 mg PO BEDTIME PRN PRN Reason: Insomnia Sodium Chloride (0.9 % Sodium Chloride Flush 3 Ml Syringe) 3 ml IVFLUSH [facility] Home Medications ?Medication ?Instructions ?Recorded ?Confirmed ?Last Taken ?Type No Known Home Meds 12/23/23 12/23/23 Unknown History Physical Exam Vital Signs: Vital Signs: Last Vital Signs Temp 97 F 12/23/23 12:28 Pulse 71 12/23/23 13:53 Resp 15 12/23/23 13:53 BP 168/91 H 12/23/23 13:53 Pulse Ox 96 12/23/23 13:53 O2 Del Method Room Air 12/23/23 13:53 BMI result Body Mass Index 21.9 Const: General: cooperative, healthy appearing and comfortable Orientation/consciousness: oriented to person, oriented to place and oriented to time HEENT: Head: Yes normal to inspection Neck: Neck: Yes normal visual inspection Carotids: no bruits Chest: Chest palpation & inspection: normal inspection of the chest Resp: Effort & Inspection: normal respiratory effort and able to speak in complete sentences Auscultation: clear to auscultation bilaterally, no crackles, no rales, no rhonchi and no wheezes Cardio: Rate: regular rate Rhythm: regular rhythm Heart sounds: S1 normal heart sound present and S2 normal heart sound present Bruits: no carotid bruits Peripheral pulses: Peripheral pulses 2+ throughout GI: Inspection: Yes normal to inspection Skin: Wounds: no wounds Hair: normal Neuro: General: oriented to person, oriented to place and oriented to time Cranial nerves: Yes CN's II-XII intact bilaterally and Yes Normal hearing present Cognition (Neuro): normal cognition Motor exam (neuro): 5/5 motor strength present throughout Extrem: Other: venous exam: No significant superficial varicosities or spider telangiectasias, minimal edema General: No clubbing, No cyanosis and No edema Psych: Appearance: grossly normal Mental Status: mental status grossly normal Speech and movement: Normal speech and movement present Results Labs 12/23/23 12:43 12/23/23 12:43 Labs: Abnormal lab results 12/23/23 Range/Units 12:43 RBC 4.08 L (4.60-5.80) X10*6/uL Hct 38.7 L (42.0-52.0) % MCH 34.3 H (27.0-33.0) pg MCHC 36.2 H (31.0-36.0) g/dl MPV 9.1 L (9.4-12.4) fL Immature Gran % (Auto) 1.4 H (0.0-0.4) % Neut % (Auto) 77.6 H (45-73) % Lymph % (Auto) 9.0 L (20-40) % Lymph # (Auto) 0.5 L (1.2-4.9) X10*3/uL Abs Immat Gran (auto) 0.08 H (0.00-0.03) X10*3/uL PT 14.0 H (11.1-13.3) SEC INR 1.2 H (0.9-1.1) Short CBC 12/23/23 Range/Units 12:43 WBC 5.8 (4.8-10.8) X10*3/uL Hgb 14.0 (14.0-18.0) g/dl Hct 38.7 L (42.0-52.0) % Plt Count 213 (160-400) X10*3/uL BMP 12/23/23 12:43 Sodium 140 Potassium 4.4 Chloride 103 Carbon Dioxide 28 BUN 11 Creatinine 0.66 Calcium 9.4 All other labs normal. Assessment and Plan (1) DVT (deep venous thrombosis): Qualifiers: DVT location: lower extremity Affected thrombotic vein of extremity: femoral Chronicity: acute Laterality: right Qualified Code(s): I82.411 - Acute embolism and thrombosis of right femoral vein Status: Acute Plan In short patient has acute onset right lower extremity DVT. This does extend from the femoral into the common femoral region. The patient will require right lower extremity mechanical venous thrombectomy. Risks benefits complications were discussed in detail with the patient patient understood and consented. Will be scheduled for tomorrow. Procedures Date of Service Date of Service: 12/23/23
[2023-12-23 16:06] VITALS: BMI 21.6
--- NOTE | 2023-12-23 17:01 | PC.NURSE ---
Patient arrived on the floor with Heparin drip running at 8.89ml/hr = 14units/kg/hr. Pt alert and oriented x4. Call castellon within reach,encouraged to use it for assistance.
[2023-12-23 19:24] VITALS: BP 140/68; PULSE 81; RESP 16; TEMP 36.6; O2SAT 93
[2023-12-23 19:35] VITALS: BP 130/70; PULSE 74; RESP 16; TEMP 36.3; O2SAT 97
[2023-12-23 20:30] LABS: PTT Heparin Drip 61.4 SEC (53-77.9)
--- NOTE | 2023-12-23 20:30 | PC.NURSE ---
This RN assumed care at 1900, pt is AOx4 speech is appropriate for patient. Respirations even and unlabored, breath sounds clear. Bowel soundsx4, no pain with palpation. RLE has redness and 2+ edema noted, pain with touch. Heparin drip running at 14 unit/kg/hr. No bleeding noted. Pt is resting calm/cooperatively in bed, with no apparent distress. Call castellon within reach.
[2023-12-23] MEDS: 0.9 % Sodium Chloride Flush 3 ML SYRINGE IVFLUSH (22:49)
[2023-12-23 23:13] VITALS: BP 125/73; PULSE 67; RESP 16; TEMP 36.1; O2SAT 98
[2023-12-24 02:20] LABS: PTT Heparin Drip 58.8 SEC (53-77.9)
[2023-12-24 07:04] VITALS: BP 127/75; PULSE 68; RESP 16; TEMP 36.7; O2SAT 97
[2023-12-24 07:14] LABS: Alanine Aminotransferase 7 U/L (0-40); Albumin Level 3.3 g/dL (3.5-5.0); Alkaline Phosphatase 71 U/L (39-117); Anion Gap 13 (12-20); Aspartate Amino Transferase 16 U/L (5-37); Bilirubin Total 1.1 mg/dL (0.0-1.0); Blood Urea Nitrogen 10 mg/dL (9-16); Calcium 8.8 mg/dL (8.4-10.2); Carbon Dioxide 25 mmol/L (22-29); Chloride 106 mmol/L (96-108); Creatinine Clr Calc Pharmacy 103.5; Estimated Glomerular Filt Rate > 60; Glucose Random 86 mg/dL (60-115); Potassium 3.9 mmol/L (3.3-5.1); Sodium 140 mmol/L (135-145); Total Protein 5.5 g/dL (6.5-8.0)
--- NOTE | 2023-12-24 09:39 | P.PNIM_ITS ---
Subjective Subjective Date of Service: 12/24/23 Interval History: f/u on extensive right leg dvt no pain, no sob, no tachy Physical Exam 2 Vital Signs: Vital Signs: Last Vital Signs Temp 98.1 F 12/24/23 07:04 Pulse 68 12/24/23 07:04 Resp 16 12/24/23 07:04 BP 127/75 12/24/23 07:04 Pulse Ox 97 12/24/23 07:04 O2 Del Method Room Air 12/24/23 07:04 BMI result Body Mass Index 21.6 General: AO X 3, no acute distress Resp: CTA bilateral CVS: S1,S2,RRR GI: +BS, NT, no distention Skin: No rash msK: swelling of the right leg, Neuro: motor grossly intact Psych: appropriate affect Objective Data Active Medications Acetaminophen (Acetaminophen 325 Mg Tablet) 650 mg PO Q6H PRN PRN Reason: Pain, Mild (Pain Scale 1-3), fever or headache Calcium Carbonate (Calcium Carbonate 750 Mg Tab.Chew) 750 mg PO Q4H PRN PRN Reason: Heartburn Heparin Sodium (Porcine) (Heparin Sodium,Porcine 5,000 Unit/Ml Vial) 5,100 unit 80 unit/kg (5100 unit) IVPUSH PROTOCOL BOLUS PRN; Protocol PRN Reason: 80 unit/kg - Heparin Protocol Heparin Sodium (Porcine) (Heparin Sodium,Porcine 5,000 Unit/Ml Vial) 2,500 unit 40 unit/kg (2500 unit) IVPUSH PROTOCOL BOLUS PRN; Protocol PRN Reason: 40 unit/kg - Heparin Protocol Heparin Sodium/Sodium Chloride (Heparin Sodium,Porcine/1/2ns) 25,000 unit in 250 mls @ 0 mls/hr IVCONT .Q0M [facility]; Protocol Last Titration: 12/24/23 02:26 Dose: 14 units/kg/hr, 8.89 mls/hr Documented By: JIMMY Co-signed By: NAHUN Sodium Chloride (Ns) 1,000 mls @ 100 mls/hr IVCONT .Q10H [facility] Magnesium Hydroxide (Milk Of Magnesia 30 Ml Oral.Susp) 30 ml PO DAILY PRN PRN Reason: Constipation Melatonin (Melatonin 3 Mg Tablet) 6 mg PO BEDTIME PRN PRN Reason: Insomnia Sodium Chloride (0.9 % Sodium Chloride Flush 3 Ml Syringe) 3 ml IVFLUSH QSHIFT [facility] Last Admin: 12/24/23 07:18 Dose: Not Given Documented By: ALE Non-Admin Reason: IV Running Labs 12/23/23 12:43 12/24/23 05:35 Labs: Laboratory Results - last 24 hr 12/23/23 12/23/23 12/24/23 12:43 20:08 02:06 MCV 94.9 MCH 34.3 H MCHC 36.2 H RDW 13.0 Plt Count 213 MPV 9.1 L Immature Gran % (Auto) 1.4 H Neut % (Auto) 77.6 H Lymph % (Auto) 9.0 L Lanier % (Auto) 9.4 Eos % (Auto) 1.9 Baso % (Auto) 0.7 Lymph # (Auto) 0.5 L Lanier # (Auto) 0.5 Eos # (Auto) 0.1 Baso # (Auto) 0.0 Abs Immat Gran (auto) 0.08 H Absolute Neuts (auto) 4.5 Absolute Nucleated RBC 0.000 Nucleated RBC % (auto) 0.0 PT 14.0 H INR 1.2 H APTT 33.3 aPTT Heparin Protocol 61.4 58.8 Anion Gap 13 Estim Creat Clear Calc 90.8 Estimated GFR > 60 Random Glucose 90 Calcium 9.4 Total Bilirubin AST ALT Alkaline Phosphatase Total Protein Albumin 12/24/23 05:35 MCV MCH MCHC RDW Plt Count MPV Immature Gran % (Auto) Neut % (Auto) Lymph % (Auto) Lanier % (Auto) Eos % (Auto) Baso % (Auto) Lymph # (Auto) Lanier # (Auto) Eos # (Auto) Baso # (Auto) Abs Immat Gran (auto) Absolute Neuts (auto) Absolute Nucleated RBC Nucleated RBC % (auto) PT INR APTT aPTT Heparin Protocol Anion Gap 13 Estim Creat Clear Calc 103.5 Estimated GFR > 60 Random Glucose 86 Calcium 8.8 D Total Bilirubin 1.1 H AST 16 ALT 7 Alkaline Phosphatase 71 Total Protein 5.5 L Albumin 3.3 L Assessment and Plan (1) DVT (deep venous thrombosis): Status: Acute Plan 73/M with DVT over 30 yrs ago, here with extensive right lower extremity DVT R leg extensive DVT -IV heparin -surgical decloting today by Dr. Jewell -Hematology for treatment modality--likely lifetime anticoagulation. -No pulmonary symptoms so no chest imaging at this timne. need for inpt: IV heparin for extensive DVT DVT prophylaxis: IV heparin Full code Quality Stroke Does the patient have a stroke diagnosis?: No VTE Prior VTE?: No VTE Risk Level:: Medical - moderate - high VTE Device Contraindication: N/A - Device Ordered VTE Drug Contraindication: N/A - Med Ordered
[2023-12-24] MEDS: 0.9 % Sodium Chloride 1,000 ML 100 ML IVCONT (10:23)
[2023-12-24 12:23] VITALS: BP 134/77; PULSE 64; RESP 18; TEMP 36.8; O2SAT 96
--- NOTE | 2023-12-24 12:31 | PC.NURSE ---
patient reports drinking 5 drinks daily and last was Wednesday. Patient denies any withdrawal symptoms. VS wnl.
--- NOTE | 2023-12-24 13:58 | PM.HEMONCCN ---
Subjective - Subjective Chief complaint: Right leg blood clot Patient: new to practice Consult date: 12/24/23 Requesting Physician: Dr. Leggett Primary Care Provider: Sly Vuong MD HPI - Consult Narrative Reason for consult: Right leg DVT Narrative: Ezio Resendez is a 73 year old male who has been diagnosed with right lower extremity DVT on 12/23/2023. He presented with swelling of the right leg. He underwent L3/L4, L4-L5 laminotomy in 09/22/2023. Following this he was somewhat sedentary, right lower extremity Doppler revealed extensive acute DVT throughout the entire right lower extremity. He was started on heparin, he underwent thrombectomy by Dr. Hackett today. Patient states in bed almost 30 years ago he was diagnosed with a clot in his left leg. He was hospitalized, he was on heparin and later underwent surgical procedure. He does not recall being on oral anticoagulation back then but he does not remember the details. There is no family history of thrombosis. Not have any siblings or children. He smokes cigars. He is up-to-date with colonoscopy. He denies any symptoms such as fatigue, loss of appetite or weight loss. No pleuritic chest pain, shortness of breath or cough. Review of Systems - Constitutional Reports as per HPI, Denies fatigue, Denies lack of energy, Denies malaise - Cardiovascular Reports no additional cardiovascular complaints - Respiratory Reports no additional respiratory complaints - Gastrointestinal Reports no additional gastrointestinal complaints - Neurologic Reports hearing normal, Denies abnormal gait [facility] Medical History: Medical History (Last Reviewed 12/23/23 @ 14:09 by Guillermo Leggett MD) Basal cell carcinoma BPH (benign prostatic hyperplasia) DVT (deep venous thrombosis) Elevated cholesterol Sciatica Surgical History: Surgical History (Last Reviewed 12/23/23 @ 14:09 by Guillermo Leggett MD) H/O colonoscopy Hx of Achilles tendon repair Hx of neck surgery Hx of varicose vein ligation Hx of wisdom tooth extraction Social History: Social History (Last Reviewed 12/23/23 @ 14:09 by Guillermo Leggett MD) Living Situation History: Household Members: Spouse Housing: House Are you a primary specialist wound care to a significant other at home: No Do you presently have visiting nurse or other home services: No Alcohol History Details: 1. How often do you have a drink containing alcohol?: e. 4 or more times a week 2. How many drinks containing alcohol do you have on a typical day when you are drinking?: c. 5 or 6 3. How often do you have six or more drinks on one occasion?: b. Less than monthly AUDIT-C Alcohol total score: 6 Last drink: Hours (ago) Last Drank Other:: 12/21 Currently Displaying Signs/Symptoms of Alcohol Withdrawal: No Tobacco History: Patient Tobacco Use Status: Current someday Tobacco Tobacco use type: Cigar Years Smoked: 30 Smoked in Last 30 Days: Yes Patient Interested in Nicotine Replacement: No Patient Given Instructions on How to Stop Smoking: No Second Hand Smoke Exposure: No Substance Use History: Use of substances other than those prescribed or required for medical reasons: No Currently Displaying Signs/Symptoms of Drug Intoxication Withdrawal: No Any prior treatment program specific to substance use: No Domestic Abuse History: Have you been hit, kicked, punched, or otherwise hurt by someone within the past year? If so, by whom?: No Do you feel safe in your current relationship?: Yes Is there a partner from a previous relationship who is making you feel unsafe now?: No Are you made to feel afraid or neglected: No Advance Directives: Advance Directives: No Advance Directives Information Provided: Yes Advance Directives on File: No Homicidal Assessment: Do you have a plan to hurt others: No Plan Nutrition Assessment: Recently lost weight without trying: No Nutrition Risks: No Nutritional Risk Poor oral hygiene: No Occupation Assessmet: service: No Home Medications and Allergies Current Medications: Current Medications Acetaminophen (Acetaminophen 325 Mg Tablet) 650 mg PO Q6H PRN PRN Reason: Pain, Mild (Pain Scale 1-3), fever or headache Calcium Carbonate (Calcium Carbonate 750 Mg Tab.Chew) 750 mg PO Q4H PRN PRN Reason: Heartburn Heparin Sodium (Porcine) (Heparin Sodium,Porcine 5,000 Unit/Ml Vial) 5,100 unit 80 unit/kg (5100 unit) IVPUSH PROTOCOL BOLUS PRN; Protocol PRN Reason: 80 unit/kg - Heparin Protocol Heparin Sodium (Porcine) (Heparin Sodium,Porcine 5,000 Unit/Ml Vial) 2,500 unit 40 unit/kg (2500 unit) IVPUSH PROTOCOL BOLUS PRN; Protocol PRN Reason: 40 unit/kg - Heparin Protocol Heparin Sodium/Sodium Chloride (Heparin Sodium,Porcine/1/2ns) 25,000 unit in 250 mls @ 0 mls/hr IVCONT .Q0M [facility]; Protocol Last Titration: 12/24/23 02:26 Dose: 14 units/kg/hr, 8.89 mls/hr Sodium Chloride (Ns) 1,000 mls @ 100 mls/hr IVCONT .Q10H [facility] Last Admin: 12/24/23 10:23 Dose: 100 mls/hr Magnesium Hydroxide (Milk Of Magnesia 30 Ml Oral.Susp) 30 ml PO DAILY PRN PRN Reason: Constipation Melatonin (Melatonin 3 Mg Tablet) 6 mg PO BEDTIME PRN PRN Reason: Insomnia Sodium Chloride (0.9 % Sodium Chloride Flush 3 Ml Syringe) 3 ml IVFLUSH QSHIFT [facility] Last Admin: 12/24/23 07:18 Dose: Not Given Home Medications ?Medication ?Instructions ?Recorded ?Confirmed ?Type No Known Home Meds 12/23/23 12/23/23 History Allergies Allergy/AdvReac Type Severity Reaction Status Date / Time No Known Allergies Allergy Verified 12/24/23 12:27 Physical Exam Vital signs: Vital Signs Temp 98.2 F 12/24/23 12:23 Pulse 64 12/24/23 12:23 Resp 18 12/24/23 12:23 BP 134/77 12/24/23 12:23 Pulse Ox 96 12/24/23 12:23 O2 Del Method Room Air 12/24/23 12:23 Intake & Output 12/23/23 12/24/23 12/24/23 18:59 06:59 18:59 Intake Total 508.903 / 508.903 Balance 508.903 / 508.903 Intake: Intake, Oral Amount 400 / 400 Intake, IV Amount 108.903 / 108.903 Heparin Sodium,Porcine/1/2NS 25 108.903 / 108.903 ,000 unit In 250 ml @ Per Protocol IVCONT .Q0M [facility] Rx#: [id number] Other: NPO Yes Dinner % Eaten 100% Eating (Feeding) Ability Independent Number of Unmeasured Voids 1 Urine Bathroom Last Bowel Movement 12/23/23 Weight 62.5 kg Weight in Grams 81510 Weight 62.5 kg - Constitutional Present: no acute distress - Routine HEENT Exam Head: Present: normal inspection Eye: Present: normal appearance - Routine Neck Exam Present: supple. Absent: lymphadenopathy - Routine Respiratory Exam Present: CTAB. Absent: accessory muscle use - Routine Cardiovascular Exam Cardiovascular: Present: S1, S2 - Routine Abdominal Exam Present: soft - Routine Extremities Exam Present: pulses intact, pedal edema Hem/Onc Consult Result - Labs CBC & Chem 7: 12/23/23 12:43 12/24/23 05:35 Labs: BMP 12/24/23 05:35 Sodium 140 Potassium 3.9 Chloride 106 Carbon Dioxide 25 BUN 10 Creatinine 0.57 Calcium 8.8 D Liver Function 12/24/23 Range/Units 05:35 Total Bilirubin 1.1 H (0.0-1.0) mg/dL AST 16 (5-37) U/L ALT 7 (0-40) U/L Alkaline Phosphatase 71 (39-117) U/L Albumin 3.3 L (3.5-5.0) g/dL Assessment and Plan Patient Active problem list reviewed?: Yes (1) DVT (deep venous thrombosis) Status: Acute Assessment and plan: 1. This is a 73-year-old man with acute right lower extremity DVT, 3 months after surgical procedure on his back. He has been somewhat sedentary. Right lower extremity Doppler showed extensive acute DVT, thrombus seen in posterior tibial veins, peroneal vein as well as gastrocnemius vein extending into popliteal vein, femoral vein and common femoral vein. He has been started on heparin, underwent thrombectomy today. He can be switched to oral anticoagulation tomorrow, Eliquis 10 mg b.i.d. for 1 week followed by 5 mg b.i.d.. Reviewing his old records, in 2008 he underwent vein stripping of his left leg, he had multiple Doppler studies going as far back as 1998 all of which show superficial thrombophlebitis. There was extensive clot throughout left greater saphenous vein in 1998 but no DVT. In view of extensive clot on his right lower extremity, I did discuss long-term anticoagulation with the patient. He does not have any children or siblings, thrombophilia workup can be deferred as it does not exchange operator for him. I thank you for the referral. - Time Spent With Patient Time Spent with Patient (in minutes): 20
[2023-12-24 15:00] VITALS: BP 138/80; PULSE 69; RESP 16; TEMP 36.8; O2SAT 98
--- NOTE | 2023-12-24 15:02 | P.OP_ITS ---
Operative Note Operative Note Date of Service: 12/24/23 Narrative: Operative note by [facility] Preoperative diagnosis: Deep venous thrombosis of right lower extremity Postoperative diagnosis: Same Procedure: 1 Ultrasound-guided right popliteal vein access 2. Inferior vena cavogram 3. Percutaneous transluminal venous mechanical thrombectomy (14084) 4. Radiologic super visual and interpretation 5. Plasty of popliteal vein Surgeon:Kiko Jewell M.D. Erosion Control Specialist: None Anesthesia: Local with moderate conscious sedation. Total intra service moderate sedation time was 50 minutes. I monitored the patient's level of consciousness and physiologic status continuously throughout the procedure Specimen: None Drains: None Estimated blood loss: 50 mL Implant: None Comorbid conditions: Status post lumbar spine decompression Indications: 73-year-old gentleman who had an outpatient ultrasound by primary care doctor for swelling postoperatively. He was noted to have right lower extremity acute DVT on ultrasound. The plan of care is mechanical thrombectomy of the lower extremity veins. The patient has signed the informed consent after reviewing risks, complications, benefits, and alternatives previously discussed with the patient. The patient was given the opportunity to ask any additional questions or voice any concerns. All questions were answered to the patient's satisfaction. Procedure in detail: Patient was brought to the Angiography suite prior to which a time-out was called for patient identification and site verification. The patient was placed in a prone position. Bilateral popliteal fossas were prepped out. We first access the right popliteal vein under ultrasound guidance. We then placed a percutaneous 5 Bruneian sheath. We were then able to traverse the clot with a Glidewire Advantage 035 wire. We brought in a trail B lazer catheter to confirmed true lumen. At this time 5000 units of heparin was administered. After 5 minutes of circulation time we then dilated up the tract. The Clot Triever over the wire system was then brought into position. We placed the clot triever sheath and exposed the self expanding Nitinol mesh funnel to facilitate clot removal for large-bore side port rapid aspiration. Once this was accomplished we then advanced over the wire the clot triever catheter with the coring element and braided collection bag. This was brought into the inferior vena cava up past this occlusion and extracted back. We did 4 sequential passes.The main angle of the catheter was placed at the 12:00 o'clock, 03:00 o'clock, 06:00 o'clock, and 09:00 o'clock positions. After each pass had been completed, large amount of clot was removed. After each subsequent pass the clot was removed and it was flushed clear and we then brought it in again through this area. We noted that there was still high-gr mariano stenosis at the popliteal vein which was greater than 50%. This was plasty did with a 8 x 40 balloon. Completion venogram demonstrated an excellent result. We subsequently removed catheter wire in sheath. Direct pressure was held for 10 minutes. Sterile dressing was applied. Patient was brought to the recovery room with stable vitals. Interpretation of films: 1. Ultrasound was used to evaluate access site. Popliteal vein did note to have thrombus. Ultrasound was used to visualize needle entry. Image of ultrasound was saved on PACS 2. Vena cavogram demonstrated thrombus in the distal vena cava along the end attire iliofemoral system down into the popliteal vein. 3. Completion vena cavogram demonstrated resolution of clot. Conclusion: 1. Successful mechanical clot removal. 2. Anticoagulation status: Resume heparin drip in for hours. Tomorrow may start oral anticoagulation. This note is constructed using voice recognition software. While every effort has been made to ensure accuracy, personal loan specialist errors may have been included. Thank you for allowing me to participate in the care of your patient. Yours sincerely, Kiko Jewell MD, FACS, R.P.V.I.
[2023-12-24 15:15] VITALS: BP 126/78; PULSE 67; RESP 16; O2SAT 98
[2023-12-24 15:26] VITALS: BP 136/80; PULSE 68; RESP 12; TEMP 36.6; O2SAT 98
--- NOTE | 2023-12-24 15:54 | PC.NURSE ---
Pt. left the floor around noon with Heparin drip running at 14U/kg/hr, came back Heparin drip is paused. Per provider order to restart the drip at the same rate as previous order today at 1830. Order for PTT ordered for 29.
[2023-12-24] MEDS: 0.9 % Sodium Chloride Flush 3 ML SYRINGE IVFLUSH (17:16)
[2023-12-24] MEDS: Heparin Sodium,Porcine/1/2NS 25,000 UNIT/250 ML IV.SOLN 8.89 UNIT IVCONT (20:44)
[2023-12-24 23:08] VITALS: BP 133/69; PULSE 66; RESP 18; TEMP 36.2; O2SAT 98
[2023-12-25 02:16] LABS: PTT Heparin Drip 62.9 SEC (53-77.9)
[2023-12-25 08:00] VITALS: BP 132/73; PULSE 72; RESP 13; TEMP 36.1; O2SAT 98
[2023-12-25 08:34] LABS: PTT Heparin Drip 62.4 SEC (53-77.9)
[2023-12-25] MEDS: Apixaban 5 MG TABLET 10 MG PO (08:40)
--- NOTE | 2023-12-25 10:10 | PM.DS ---
DS: Providers Provider Date of Service: 12/25/23 Date of admission: 12/23/23 14:24 Primary care physician: Sly Vuong MD Consults: 12/23/23 14:24 Consult to Vascular Surgery Routine Consulting Provider: [facility] V[facility] Services Reason for consultation: right leg extensive dvt Has provider been notified: Yes 12/24/23 09:19 Consult to Hematology / Oncology Routine Consulting Provider: [facility] Oncology/Hematology Reason for consultation: extensive dvt, advise on treatment options Has provider been notified: No DS: Diagnosis Discharge Diagnosis (1) DVT (deep venous thrombosis): Status: Acute DS: Summary Hospital Course Hospital Course: from initial hpi: 73 year old male with history of left lower extremity DVT 30 years ago took anticoaglation at that time and other history as stated below. He presents today with pain, swelling of the right leg for 2 to 3 days now, no injury, no imobility, no long journeys recent. He has no shortness of breath or chest pain or hypoxia. US shows extensive right lower extremity DVT. He is being initiated on IV heparin and vascular surgery is planning decloting tomorrow. hospital course: Patient was admitted for acute extensive right lower extremity DVT. Was treated with IV heparin, underwent clot extraction with vascular surgery. Had no issues with bleeding. Was seen by Hematology recommended indefinite treatment. Transitioned to high-dose Eliquis and will continue loading and then after 7 days decrease to 5 mg b.i.d.. Patient will follow up outpatient with Hematology. Time Attestation Discharge Coordination Time (in mins): 32 Quality: Safe Use of Opioids Does Pt have an Active Cancer Diagnosis on the Problem List?: No Quality: Stroke Does the patient have a stroke diagnosis?: No Physical Exam Vital Signs: Vital Signs: Last Vital Signs Temp 96.9 F 12/25/23 08:00 Pulse 72 12/25/23 08:00 Resp 13 12/25/23 08:00 BP 132/73 12/25/23 08:00 Pulse Ox 98 12/25/23 08:00 O2 Del Method Room Air 12/25/23 08:00 BMI result Body Mass Index 21.6 General: AO X 3, no acute distress Resp: CTA bilateral, no accessory muscles used CVS: S1,S2,RRR GI: soft, non tender, non distended Neuro: motor grossly intact, alert Psych: appropriate affect, appropriate insight DS: Data Data Completed and Pending Labs on day of discharge: Laboratory Results - last 24 hr 12/25/23 12/25/23 02:04 08:08 aPTT Heparin Protocol 62.9 62.4 Discharge Plan Discharge Anticipated Discharge Date/Time: 12/25/23 10:07 Patient Disposition: Home, Self-Care Discharge Diagnosis: dvt Referrals: Sly Vuong MD [Primary Care Provider] - 1 Week Shanon Groves MD [Physician] - 1 Week Discharge Medications: New Eliquis 5 mg Tablet 10 mg PO BID Qty: 202 0RF Rx Instructions: 10mg bid for 7 days total, then decrease to 5mg bid Discharge Orders: Discharge Order (Routine); Ordered 12/25/23 Ordered By: Jorge Case Diet: Advance to usual diet Activity on Discharge: As tolerated Stand Alone Forms: Patient Portal Discharge page Print Language: Lao Care Plan Goals: recovery, prevent dvts Health Concerns: dvt Plan of Treatment: eliquis as prescribed, follow up with hematology Assessment: see above
--- NOTE | 2023-12-25 10:51 | MHC.CM.PN ---
PT LIVES AT HOME WITH HIS AND IS INDEPENDENT WITH CARE / MOBILITY HE HAS NO SERVICES AND NO DME PCP: JÚNIOR DIAZ PT WILL DC HOME TODAY WITH NO SERVICES TO TRANSPORT
== END 2023-12-25 11:30 | disposition home or self-care (01) | DRG 272 ==
LOC: HO.ED 13:56 → HO.EDOVER 14:38 → HO.S3 15:06
PROVIDERS: Physician Assistant; Surgery Vascular Surgery; Admitting Provider Internal Medicine; Emergency Provider Emergency Medicine; PCP Internal Medicine; Visit Provider Internal Medicine
PROC: 04CR3ZZ Extirpation of Matter from Right Posterior Tibial Artery, Percutaneous Approach (ICD-10-PCS; principal; 2023-12-24 13:00)
DX: I82.441 Acute embolism and thrombosis of right tibial vein (principal); I82.451 Acute embolism and thrombosis of right peroneal vein; I82.461 Acute embolism and thrombosis of right calf muscular vein; I82.431 Acute embolism and thrombosis of right popliteal vein; F17.290 Nicotine dependence, other tobacco product, uncomplicated; I82.411 Acute embolism and thrombosis of right femoral vein; Z71.6 Tobacco abuse counseling
CPT/HCPCS: 36415; 37187; 76937; 80048; 80053; 85025; 85610; 85730; 93971; 99152; 99153; 99285; C1725; C1757; C1769; C1887; C1894; J1644

== ENCOUNTER → 2023-12-23 14:24 | Outpatient (BNV) | payer MEDICARE, SELFPAY | PROVIDERS: Admitting Provider Internal Medicine; Emergency Provider Emergency Medicine; PCP Internal Medicine; Visit Provider Internal Medicine | DX: I82.411 Acute embolism and thrombosis of right femoral vein (principal) | CPT/HCPCS: 99222 ==

== ENCOUNTER → 2023-12-23 14:24 | Outpatient (BNV) | payer MEDICARE, SELFPAY | PROVIDERS: Admitting Provider Internal Medicine; Emergency Provider Emergency Medicine; PCP Internal Medicine; Visit Provider Internal Medicine | DX: I82.411 Acute embolism and thrombosis of right femoral vein (principal) | CPT/HCPCS: 99223; 99232; 99239 ==

== ENCOUNTER → 2023-12-23 14:24 | Outpatient (BNV) | payer MEDICARE, SELFPAY | PROVIDERS: Admitting Provider Internal Medicine; Emergency Provider Emergency Medicine; PCP Internal Medicine; Visit Provider Surgery Vascular Surgery | DX: I82.431 Acute embolism and thrombosis of right popliteal vein (principal) | CPT/HCPCS: 36012; 37187; 37224; 75825; 76937; 99152; 99222 ==

== ENCOUNTER 2024-01-04 13:18 | Outpatient (AMB) | payer MEDICARE, SELFPAY ==
--- NOTE | 2024-01-04 13:21 | A.SPINEOV_ITS ---
Intake Visit Reasons: 2 months f/up Intake Note: Mr. Resendez is here today for a 2 Month F/u. 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 The swelling has resolved since our last visit. He is feeling much better. He has been to the driving range in his able to speak in call club without issues. He states that he gets some feelings of fatigue over his left dorsal foot, but this too is slowly improving. Overall, Ezio had no questions and feels much better than he did prior to surgery. He may be discharged as a patient. Coding Level of Care Code Global (46392) Diagnoses Status post lumbar spine surgery for decompression of spinal cord Z98.890
== END 2024-01-04 15:14 | disposition home or self-care (01) ==
PROVIDERS: PCP Internal Medicine; Visit Provider Physician Assistant
DX: Z98.890 Other specified postprocedural states (principal)
CPT/HCPCS: 99212

== ENCOUNTER → 2024-01-04 13:18 | Outpatient (BNVA) | payer MEDICARE, SELFPAY | PROVIDERS: PCP Internal Medicine; Visit Provider Physician Assistant | DX: Z98.890 Other specified postprocedural states (principal) | CPT/HCPCS: 99212 ==

== ENCOUNTER → 2024-01-05 08:30 | Outpatient (BNV) | payer MEDICARE, SELFPAY | PROVIDERS: PCP Internal Medicine; Visit Provider Internal Medicine | DX: Z86.718 Personal history of other venous thrombosis and embolism (principal); Z79.01 Long term (current) use of anticoagulants | CPT/HCPCS: 99214; G2211 ==

== ENCOUNTER 2024-01-19 11:49 | Outpatient (AMB) | payer MEDICARE, SELFPAY ==
--- NOTE | 2024-01-19 11:57 | A.OFFVIS_ITS ---
Intake Visit Reasons: Post op thrombectomy 12/24/23 Intake Note: Patient presents for post op thrombectomy performed on 12/24/23. States his swelling has gone down , his right ankle appears to be swollen but he states it has gotten better. Allergies No Known Allergies Allergy (Verified 01/19/24 11:58) HPI HPI Post op thrombectomy 12/24/23: Details: Very pleasant 73-year-old gentleman presents for follow-up status post percutaneous mechanical thrombectomy of the right lower extremity. He has done extremely well postprocedure. Swelling and discomfort have improved significantly. He has been seeing the Hematology-Oncology team. He now presents to us for routine postprocedure follow-up. [facility] Medical History DVT (deep venous thrombosis) BPH (benign prostatic hyperplasia) Sciatica Basal cell carcinoma Elevated cholesterol Surgical History Hx of neck surgery Hx of varicose vein ligation Hx of wisdom tooth extraction Hx of Achilles tendon repair H/O colonoscopy Social History (Updated 01/05/24 @ 08:39 by Lola Persaud) Household Members: Spouse Housing: House Are you a primary resident care provider to a significant other at home: No Do you presently have visiting nurse or other home services: No Alcohol intake: current Patient Tobacco Use Status: Current someday Tobacco user Tobacco use type: Cigar Years Smoked: 30 Second Hand Smoke Exposure: No service: No Current occupational status: retired Review of Systems Const All systems reviewed & are unremarkable except as noted in HPI and below Reports no additional complaints ENT Reports Normal hearing present Card Denies chest pain, Denies chest pain at rest, Denies chest pain with activity and Denies pedal edema Resp Denies cough GI Denies abdominal pain Musc Denies abnormal gait, Denies muscle cramps and Denies radiating pain into limb Skin/Breast Denies skin ulcer and Denies wounds Neuro Reports Normal hearing present and Denies abnormal gait Psych Reports no additional complaints Physical Exam Const General: cooperative, healthy appearing and comfortable Orientation/consciousness: oriented to person, oriented to place and oriented to time HEENT Head: Yes normal to inspection Neck Neck: Yes normal visual inspection Carotids: no bruits Chest Chest palpation & inspection: normal inspection of the chest Resp Effort & Inspection: normal respiratory effort and able to speak in complete sentences Auscultation: clear to auscultation bilaterally, no crackles, no rales, no rhonchi and no wheezes Cardio Rate: regular rate Rhythm: regular rhythm Heart sounds: S1 normal heart sound present and S2 normal heart sound present Bruits: no carotid bruits Peripheral pulses: Peripheral pulses 2+ throughout GI Inspection: Yes normal to inspection Skin Other: Right popliteal stitch removed Wounds: no wounds Hair: normal Neuro General: oriented to person, oriented to place and oriented to time Cranial nerves: Yes CN's II-XII intact bilaterally and Yes Normal hearing pre sent Cognition (Neuro): normal cognition Motor exam (neuro): 5/5 motor strength present throughout Extrem Other: venous exam: No significant superficial varicosities or spider telangiectasias, minimal edema General: No clubbing, No cyanosis and No edema Psych Appearance: grossly normal Mental Status: mental status grossly normal Speech and movement: Normal speech and movement present Assessment & Plan Assessment & Plan (1) DVT (deep venous thrombosis): Code(s): I82.409 - Acute embolism and thrombosis of unspecified deep veins of unspecified lower extremity Category: Medical Qualifiers: Affected thrombotic vein of extremity: femoral Chronicity: acute DVT location: lower extremity Laterality: right Qualified Code(s): I82.411 - Acute embolism and thrombosis of right femoral vein Plan: In short patient had a right lower extremity iliofemoral DVT. I did have an opportunity to review Hematology-Oncology is note and do agree this may be secondary to his sedentary status after back surgery. He does have a prior history. He will be on long-term anticoagulation for now. We did also discuss conservative measures including compression elevation and exercise. I did discuss the importance of ambulation. In addition I did provide him an information sheet regarding compression stockings appropriate use and where to purchase good compression stockings. Will follow up with us on an as-needed basis. Thank you for allowing us to assist in his care. If there are any questions or concerns please do not hesitate to contact us. Coding Level of Care Code Est Pt Level 3 (48726) Diagnoses Acute deep vein thrombosis (DVT) of femoral vein of right lower extremity I82.411 Affected thrombotic vein of extremity: femoral Chronicity: acute DVT location: lower extremity Laterality: right
== END 2024-01-19 12:19 | disposition home or self-care (01) ==
PROVIDERS: PCP Internal Medicine; Visit Provider Surgery Vascular Surgery
DX: I82.411 Acute embolism and thrombosis of right femoral vein (principal)
CPT/HCPCS: 99213

== ENCOUNTER → 2024-01-19 11:49 | Outpatient (BNVA) | payer MEDICARE, SELFPAY | PROVIDERS: PCP Internal Medicine; Visit Provider Surgery Vascular Surgery | DX: I82.411 Acute embolism and thrombosis of right femoral vein (principal) | CPT/HCPCS: 99212 ==

== ENCOUNTER 2024-04-11 14:10 | Outpatient (REF) | payer MEDICARE, SELFPAY ==
--- NOTE | ~2024-04-11 | US_ITS ---
EXAMINATION: US TRIPLEX LOWER EXTREMITY, RIGHT CLINICAL INFORMATION: Deep venous thrombosis, history of prior thrombectomy COMPARISON: 12/23/2023 TECHNIQUE: Color-flow triplex imaging with spectral analysis and compression Doppler were performed on the right lower extremity. FINDINGS: Respiratory variation, normal compression and augmented flow are noted within the common femoral vein and profunda femoral vein. Echogenic thrombus is seen within the superficial femoral vein and popliteal vein with only a minimal recanalized flow. The midcalf peroneal and posterior tibial venous segments show no evidence of deep venous thrombosis. US/US venous duplex LE RT IMPRESSION: Recurrent versus chronic thrombosis seen in the superficial femoral vein and popliteal vein. No significant thrombus is seen in the common femoral vein and profunda femoral vein Electronically signed by: Adrian Alves MD 04/11/2024 04:28 PM EDT
== END 2024-04-11 14:11 | disposition home or self-care (01) ==
LOC: HO.US 14:10
PROVIDERS: PCP Internal Medicine; Visit Provider Internal Medicine
DX: I82.491 Acute embolism and thrombosis of other specified deep vein of right lower extremity (principal)
CPT/HCPCS: 93971

== ENCOUNTER 2024-12-04 10:09 | Outpatient (AMB) | payer MEDICARE, SELFPAY ==
[2024-12-04 09:42] VITALS: BP 124/76; PULSE 76; TEMP 36.4; O2SAT 98; BMI 22.7
--- NOTE | 2024-12-04 09:42 | MHC.PC.OV ---
Vital Signs 12/04/24 09:42 Height 5 ft 7 in Weight 145 lb BMI 22.7 BP 124/76 Blood Pressure Location Lt brachial Position Sitting Pulse 76 Pulse Source Pulse Oximeter Temp 97.6 F Temp Source Axillary Pulse Oximetry (%) 98 Oxygen Delivery Method Room Air Intake Visit Reasons: Routine Promotions Officer Required: No Accompanied by: Self / Same As Patient Allergies No Known Allergies Allergy (Verified 12/04/24 09:43) Tobacco use date assessed: 12/04/24 Fall risk assessment: No Falls in past year Dental Screening Dental Screen Date: 12/04/24 Did you have a dental visit in the last 12 months?: Yes Did you have a dental problem in the last 6 months where you did not have access to dental care?: No [facility] Medical History (Updated 12/04/24 @ 11:09 by Lucio Styles MD) DVT (deep venous thrombosis) BPH (benign prostatic hyperplasia) Sciatica Basal cell carcinoma Elevated cholesterol Surgical History Hx of neck surgery Hx of varicose vein ligation Hx of wisdom tooth extraction Hx of Achilles tendon repair H/O colonoscopy (~11/11/21) Family History (Updated 12/04/24 @ 10:35 by Annia Dale MA) Mother No problems noted. Father No problems noted. Social History Household Members: Spouse Housing: House Are you a primary critical care cns to a significant other at home: No Do you presently have visiting nurse or other home services: No Alcohol intake: current Patient Tobacco Use Status: Current everyday Tobacco user Tobacco use type: Cigar Years Smoked: 30 e-Cigarette/Vaping Use: Currently Using Second Hand Smoke Exposure: No service: No Current occupational status: retired Cognitive needs: No Hearing needs: No Vision needs: Yes (reading glasses) Questionnaire PHQ-9 Over the last 2 weeks, how often have you been bothered by any of the following problems? 1. Little interest or pleasure in doing things: not at all 2. Feeling down, depressed, or hopeless: not at all 3. Trouble falling or staying asleep, or sleeping too much: not at all 4. Feeling tired or having little energy: not at all 5. Poor appetite or overeating: not at all 6. Feeling bad about yourself - or that you are a failure or have let yourself or your family down: not at all 7. Trouble concentrating on things, such as reading the newspaper or watching television: not at all 8. Moving or speaking so slowly that other people could have noticed. Or the opposite - being so fidgety or restless that you have been moving around a lot more than usual: not at all 9. Thoughts that you would be better off or of hurting yourself in some way: not at all Total score: 0 Source: Developed by Drs. Tyler Harvey, Tierra Castro, Jorgito Cardenas and colleagues, with an educational elroy from [employer]. Thrive Questionnaire Date Thrive assessed: 12/04/24 I am a: Patient Within the past 12 months, did the food you bought not last and you didn't have the money to get more?: Never true Within the past 12 months, did you worry whether your food would run out before you got money to buy more?: Never true Do you have trouble paying for medicines?: No Do you have trouble getting transportation to medical appointments?: No Do you have trouble paying your heating and electricity bill?: No Do you have trouble taking care of your child, family member or friend?: No Do you have trouble with day-to-day activities such as bathing, preparing meals, shopping, managing finances, etc.?: No Are you currently unemployed and looking for a job?: No Are you interested in more education?: No THRIVE Score: 0 AUDIT C Alcohol Use Questionnaire (AUDIT-C) 1. How often do you have a drink containing alcohol?: Monthly or less 2. How many drinks containing alcohol do you have on a typical day when you are drinking?: 1 or 2 3. How often do you have six or more drinks on one occasion?: Less than monthly Total Score: 2 DAYANA-7 AMB Questionnaire DAYANA-7 Date DAYANA - 7 assessed: 12/04/24 Feeling nervous, anxious, or on edge: 0 = Not at all Not being able to stop or control worryin = Not at all Worrying too much about different things: 0 = Not at all Trouble relaxin = Not at all Being so restless that it is hard to sit still: 0 = Not at all Becoming easily annoyed or irritable: 0 = Not at all Feeling afraid as if something awful might happen: 0 = Not at all Total DAYANA-7 score (0-4 normal; 5-9 mild; 10-14 moderate; 15-21 severe): 0 Source: Developed by Drs. Tyler Harvey, Tierra Castro, Jorgito Cardenas and colleagues, with an educational elroy from [employer]. Physical exam (Primary Care) Vital Signs: Last Vital Signs Temp 97.6 F 12/04/24 09:42 Pulse 76 12/04/24 09:42 BP 124/76 12/04/24 09:42 Pulse Ox 98 12/04/24 09:42 Oxygen Delivery Method Room Air 12/04/24 09:42 BMI result Body Mass Index 22.7 Tobacco/Smoking Status: Tobacco use Status Tobacco use date assessed 12/04/24 12/04/24 09:46 Patient Tobacco Use Status Current everyday Tobacco 12/04/24 10:36 Tobacco use type Cigar 12/04/24 09:46 e-Cigarette/Vaping Use Currently Using 12/04/24 10:36 PHQ-9: PHQ-9 Score PHQ-9: Total score 0 12/04/24 10:36 Thrive Assessment: Date of Thrive Assessment Date Thrive assessed 12/04/24 12/04/24 10:36 Coding Level of Care Code New Pt Level 4 (84726) Complex EM visit Add On G2211 Diagnoses Elevated cholesterol E78.00 DVT (deep venous thrombosis) I82.409 Elevated PSA R97.20 Assessment & Plan Assessment & Plan (1) Elevated cholesterol: Code(s): E78.00 - Pure hypercholesterolemia, unspecified Category: Medical Plan: BW ordered, will call with results (2) DVT (deep venous thrombosis): Comment: left leg-age 40's-was on blood thinner short term Code(s): I82.409 - Acute embolism and thrombosis of unspecified deep veins of unspecified lower extremity Category: Medical (3) Elevated PSA: Code(s): R97.20 - Elevated prostate specific antigen [PSA] Plan: rpt PSA ordered. Will call with results Plan History of Present Illness - The patient is a 74-year-old male presenting for an annual checkup. - He experienced Deep Vein Thrombosis (DVT) last year and is currently on Eliquis. - The patient uses Sildenafil for Erectile Dysfunction and requires a refill of 50 mg taken approximately 8 times a month. - Prostate-specific antigen (PSA) levels were noted to be elevated last year, though the patient reports no urinary symptoms. - He has a history of sciatica, previously treated surgically, leading to some functional limitations in back-related activities. - Reports sighting a tick that may have left a part in his skin; he scratched at the site but reports no residual issues. - He smokes cigars, approximately two per day, and uses reading glasses for close-up vision but notes his distance vision is better. 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 - Lives with his . - Reports difficulty with certain activities like gardening due to sciatica. - Smokes a couple of cigars per day. - Uses reading glasses for near tasks. Review of Systems - Cardiovascular: Denies any new symptoms. - Genitourinary: Denies difficulty urinating. - Musculoskeletal: Reports limitations with gardening due to back weakness. - Neurological: Denies ongoing sciatic symptoms post-surgery. - Ophthalmologic: Reports improved distance vision but needs reading glasses. - Dermatologic: Reports having scratched at a site from a tick removal. - Respiratory: Denies cough or shortness of breath. - Gastrointestinal: Denies abdominal pain. Physical Exam General: Cooperative and healthy appearing Nutritional Appearance: Well nourished Orientation/consciousness: Patient oriented x3 Limitations: No limitations Head: Normal to inspection General: Appearance normal, both eyes and all related structures Neck: Normal visual inspection Chest: Normal palpation of entire chest wall Respiratory: Normal respiratory effort Neurology: Patient oriented x3 Results - Labs: Previous function tests noted (liver function, kidney function, BUN, creatinine) were normal; patient to have PSA levels rechecked due to last year?s elevated levels. - Tests: None reported. Plan 1. Deep Vein Thrombosis Dvt - Continuation of Eliquis, no complications identified. 2. Erectile Dysfunction Ed - Refill prescribed for Sildenafil as per patient's reported use pattern. 3. Elevated Prostate-Specific Antigen - Blood test ordered for PSA evaluation. 4. Sciatica - Recognition of past surgery and ongoing activity adjustments. Discussion Notes I reviewed current medication use with the patient. We discussed his anticoagulation therapy with Toshiaquis for DVT, which showed no complications, and agreed on continuing this plan. I provided a prescription refill for Sildenafil and sent it to [facility] pharmacy as requested. We focused on proactive care by ordering blood tests for PSA levels following last year's elevated result. During this visit, I assessed lifestyle considerations and the potential contributions to his health status, including his tobacco use. We agreed on ongoing monitoring of prostate health through regular checkups, given his stable condition and lack of symptoms. Follow-up is scheduled for routine reevaluation and additional management if necessary. Anticipatory guidance and patient-specific care aligned with his needs and preferences were emphasized. Patient Instructions - Continue taking Eliquis as prescribed for DVT. - Refills for Sildenafil are available at the [facility] pharmacy on [facility]. - Have your blood work done for PSA levels as discussed. - Return for a follow-up visit in six months or sooner if symptoms or concerns arise. - Maintain regular activity levels but listen to your body's limitations. - Avoid scratching at any skin areas that have been potentially exposed to insects. - Consider managing tobacco use and its impact on general health. Orders: Orders Prostate Specific Antigen Scr Today E78.00 - Pure hypercholesterolemia, unspecified Lipid Panel Today E78.00 - Pure hypercholesterolemia, unspecified Medications: Changed From sildenafil 50 mg PO Q3D PRN prn To sildenafil 30 minutes prior sexual activity 50 mg PO .prn PRN 8 tabs 0RF prn 30 days
--- OUTSIDE RECORDS SUMMARY | 2024-12-04 11:05 | XMS_ITS | Patient Health Record ---
Author Organization [facility] Address [address] [place] [address] Care Team Providers Care Sales Representative Facility Services Name Role Phone Sly Vuong MD Primary Care Provider Yonatan Valles Jr Unavailable Allergies No Known Allergies Reason For Referral No Information Medications Medication SIG (Take, Route, Frequency, Duration) Notes Start Date End Date Status MiraLax (colon prep) 17 GM/SCOOP mixed with Gatorade or Crystal Light Orally begin at 5:00 p.m. the day before the procedure for 1 day 10/08/2021 Active Viagra 50 MG 1 tablet as needed O rally Once a day Active Immunizations Vaccine Route Administration Date Status Comme nts Flu vaccine no Preserv 3 and > Unknown 04/15/2017 Admin istered Influenza Unknown 04/23/2021 Administered Social History Alcohol Screen Question Answer Notes Did you have a drink contain ing alcohol in the past year? Yes How often did you have a dri nk containing alcohol in the past year? 4 or more times a week (4 points) How many drinks did you have on a typical day when you were drinking in the past year? 3 or 4 drinks (1 point) How often did you have 6 or more drinks on one occasion in the past year? Monthly (2 points) Points 7 Interpretation Positive Section Notes: cigar smoker cigar smoker Problems Problem Type SNOMED Code ICD Code Onset Dates Problem Status W/U Status Risk Notes Problem 844342113 Colon cancer screening (Z12.11) Active confirmed Problem 717118621 Long-term use of aspirin therapy (Z79.82) Active confirmed Plan Of Treatment Future Test Test Name Order Date COLONOSCOPY 07/25/2014 COLONOSCOPY 04/06/2018 COLONOSCOPY 10/08/2021 Next Appt Details Provider Name:Yonatan whitneypema Singh, 02/26/2025 01:35:00 PM, [address] [facility], [address], [place], [address], Insurance Providers Payer Name Payer Address Payer Phone Subscriber Number Group Number Insured Name Patient Relationship to Insured Coverage Start Date Coverage End Date MEDICARE OF [place] [address] [place] [address] [id number] KONSTANTIN FREEMAN Self - patient is the insured [employer] ATT[employer] CLAIMS [address] [place] [address] [phone] [id number] KONSTANTIN FREEMAN Self - patient is the insured Medical (General) History Medical History History ICD Code Colon polyps, colonoscopy , tubular adenoma, followup colonoscopy recommended in 3 years. Elevated cholesterol elevated PSA. Denies GA,DM,CVA,Lung disease,renal dise ase Surgical History Surgery Date(Month/Year) Left leg blood clot requiring extraction [place] teeth extraction achilles tendon repair vertabra fusion basal cell removal
== END 2024-12-04 11:46 | disposition home or self-care (01) ==
LOC: HO.HMCHD 10:11
PROVIDERS: PCP Internal Medicine; Visit Provider Internal Medicine
DX: E78.00 Pure hypercholesterolemia, unspecified (principal); I82.409 Acute embolism and thrombosis of unspecified deep veins of unspecified lower extremity; R97.20 Elevated prostate specific antigen [PSA]

== ENCOUNTER → 2024-12-04 10:09 | Outpatient (BNVA) | payer MEDICARE, SELFPAY | PROVIDERS: PCP Internal Medicine; Visit Provider Internal Medicine ==

== ENCOUNTER 2024-12-04 11:08 | Outpatient (REF) | payer MEDICARE, SELFPAY ==
[2024-12-04 12:50] LABS: Cholesterol 199 mg/dL (<200); HDL Cholesterol 68 mg/dL (>40); LDL Cholesterol Calculated 113 mg/dL (<100); Triglycerides 91 mg/dL (<150)
[2024-12-04 13:07] LABS: Prostate Specific Antigen Scr 5.51 ng/mL (<0.05-4.0)
== END 2024-12-04 11:09 | disposition home or self-care (01) ==
LOC: HO.10HDL 11:08
PROVIDERS: Visit Provider Internal Medicine
DX: Z00.00 Encounter for general adult medical examination without abnormal findings (principal); E78.00 Pure hypercholesterolemia, unspecified; I82.402 Acute embolism and thrombosis of unspecified deep veins of left lower extremity; R97.20 Elevated prostate specific antigen [PSA]; N52.9 Male erectile dysfunction, unspecified; M54.30 Sciatica, unspecified side; Z79.01 Long term (current) use of anticoagulants; Z12.5 Encounter for screening for malignant neoplasm of prostate
CPT/HCPCS: 36415; 80061; 84153; 96127; 99202

== ENCOUNTER 2025-02-01 08:35 | Outpatient (AMB) | payer MEDICARE, SELFPAY ==
--- NOTE | 2025-02-01 08:36 | MHC.OFFVIS ---
Intake Visit Reasons: elevated PSA Intake Note: New Patient is present for elevated PSA Urology Rx:Sildenafil Blood Thinners:elquis Imaging completed: none Labs done 12/04/24 : PSA 5.51 Interactive Media Marketing Strategist Required: No Accompanied by: Self / Same As Patient Allergies No Known Allergies Allergy (Verified 02/01/25 08:37) HPI Comments Details: Ezio is a pleasant male. He is a patient of Dr. Mcdonnell. He is seen for the following urologic conditions - elevated PSA AUA score 4 Minimal issues with urination, adequate stream, effective emptying PSA 12/23 4.3, 12/27 5.5 YOEL 2+ normal Recommend six-month follow-up PSA with bladder ultrasound [facility] Medical History (Updated 02/01/25 @ 09:02 by Delon Jiménez MD) DVT (deep venous thrombosis) BPH (benign prostatic hyperplasia) Sciatica Basal cell carcinoma Elevated cholesterol Surgical History Hx of neck surgery Hx of varicose vein ligation Hx of wisdom tooth extraction Hx of Achilles tendon repair H/O colonoscopy (~11/11/21) Family History (Updated 12/04/24 @ 10:35 by Annia Dale MA) Mother No problems noted. Father No problems noted. Social History Household Members: Spouse Housing: House Are you a primary pulmonary care nurse to a significant other at home: No Do you presently have visiting nurse or other home services: No Alcohol intake: current Patient Tobacco Use Status: Current everyday Tobacco user Tobacco use type: Cigar Years Smoked: 30 e-Cigarette/Vaping Use: Currently Using Second Hand Smoke Exposure: No service: No Current occupational status: retired Cognitive needs: No Hearing needs: No Vision needs: Yes (reading glasses) Review of Systems Const Denies chills and Denies fever(s) Card Reports no additional complaints and Denies syncope Resp Denies cough GI Denies abdominal pain and Denies heartburn Reports as per HPI and Denies change in libido Neuro Denies syncope Psych Denies change in libido Endo Denies change in libido Physical Exam Const General: cooperative, healthy appearing, comfortable and no acute distress Orientation/consciousness: patient oriented x3 HEENT Face and sinus: Yes normal facial exam Mouth: moist mucous membranes Neck Neck: Yes normal visual inspection, Yes full ROM and Yes trachea midline Chest Chest palpation & inspection: normal inspection of the chest Resp Effort & Inspection: normal respiratory effort, able to speak in complete sentences and no respiratory distress GI Inspection: Yes normal to inspection Rectal Exam - Male: Yes normal sphincter tone and Yes prostate normal Male General Exam: Yes normal external exam Penis: normal penis and circumcised Meatus: meatus normal Scrotum: scrotum normal Testes: Testes normal Back/Spine/Pelvis Cervical Spine: normal cervical lordosis Thoracic/Lumbar Spine: thoracic and lumbar spine normal to inspection Skin General skin exam: no rashes or lesions noted Neuro General: patient oriented x3, gait normal, tone normal and moves all extremities Extrem General: Yes normal to inspection and Yes capillary refill normal Assessment & Plan Assessment & Plan (1) Elevated PSA: Code(s): R97.20 - Elevated prostate specific antigen [PSA] Category: Medical Plan Six-month follow-up PSA Orders: Orders PSA,Total (Free>4and<10) 6 Months R97.20 - Elevated prostate specific antigen [PSA] US bladder 6 Months R97.20 - Elevated prostate specific antigen [PSA] Patient Instructions: This note is constructed using voice recognition software. While every effort has been made to ensure accuracy certified medical transcriptionist errors may have been included. Imaging studies, laboratory and physical exam results were discussed and reviewed in detail. No major barriers to patient understanding were identified. An opportunity to ask questions regarding the treatment plan was provided. All questions were answered. The patient expressed understanding and agreement with the above treatment plan. The patient is aware they should contact our office by phone for worsening of their current condition or the appearance of new urologic symptoms. Compliance is encouraged with any medications and followup testing that is ordered. It is a privilege to participate in the urologic care of your patient. If you have any questions or concerns regarding treatment for the above conditions, or other urologic issues, please do not hesitate to contact me. The office telephone contact is [phone]. Sincerely, Dr Delon Jiménez MD, [facility] - Urology Compassionate Specialist Care for the Genitourinary System Coding Level of Care Code New Pt Level 3 (43527) Diagnoses Elevated PSA R97.20
--- OUTSIDE RECORDS SUMMARY | 2025-02-01 08:44 | XMS_ITS | Patient Health Record ---
Author Organization [facility] Address [address] [place] [address] Care Team Providers Care High Speed Warper Tender Name Role Phone Yevgeniy (RETIRED) Sly CORRAL Primary Care Provide r Unavailable Yonatan Stallings Jr Unavailable Allergies No Known Allergies Reason [...] Problem Status W/U Status Risk Notes Problem 241469775 Colon cancer screening (Z12.11) Active confirmed Problem 489616773 Long-term use of aspirin therapy (Z79.82) Active confirmed Plan Of Treatment Future Test Test Name Order Date COLONOSCOPY 07/25/2014 COLONOSCOPY 04/06/2018 COLONOSCOPY 10/08/2021 Next Appt Details Provider Name:Yonatan Munguia Kaiser garcia Jr, 02/26/2025 01:35:00 PM, [address] [facility], [address], [place], [address], Insurance Providers Payer Name Payer Address Payer Phone Subscriber Number Group Number Insured Name Patient Relationship to Insured Coverage Start Date Coverage End Date MEDICARE OF [place] [address] [facility] [place] [address] [id number] KONSTANTIN FREEMAN Self - patient is the insured MEDEX ATTN CLAIMS [address] [place] [address] [phone] [id number] KONSTANTIN FREEMAN Self - patient is the insured Medical (General) History Medical History History ICD Code Colon polyps, colonoscopy , tubular adenoma, followup colonoscopy recommended in 3 years. Elevated cholesterol elevated PSA. Denies [place],DM,CVA,Lung disease,renal dise ase Surgical History Surgery Date(Month/Year) Left leg blood clot requiring extraction [place] teeth extraction achilles tendon repair vertabra fusion basal cell removal
== END 2025-02-01 09:08 | disposition home or self-care (01) ==
LOC: HO.HUSH 08:36
PROVIDERS: PCP Internal Medicine; Visit Provider Urology
DX: Z13.9 Encounter for screening, unspecified (principal); R97.20 Elevated prostate specific antigen [PSA]
CPT/HCPCS: 99203

== ENCOUNTER → 2025-02-01 08:35 | Outpatient (BNVA) | payer MEDICARE, SELFPAY | PROVIDERS: PCP Internal Medicine; Visit Provider Urology | DX: R97.20 Elevated prostate specific antigen [PSA] (principal) | CPT/HCPCS: 81003; 99202 ==

== ENCOUNTER 2025-03-16 08:55 | Day surgery (SDC) | payer MEDICARE, SELFPAY ==
--- OUTSIDE RECORDS SUMMARY | 2025-02-26 09:35 | XMS_ITS ---
Author Organization [facility] Address [address] [place] [address] Care Team Providers Care Programmer Developer Name Role Phone JAXSON MILAN Primary Care Provider Yonatan Mcintyre Jr Unavailable Allergies No Known Allergies REASON FOR VISIT Patient presents today for a COLON SCREENING Medications Medication SIG (Take, Route, Fr equency, Duration) Notes Start Date End Date Status Eliquis 5 MG as directed Orally twice a day Active Viagra 50 MG 1 tablet as needed O rally Once a day Active Social History Alcohol Screen Question Answer Notes [...] 7 Interpretation Positive Section Notes: cigar smoker Problems Problem Type SNOMED Code ICD Code Onset Dates Problem Status W/U Status Risk Notes Problem Long-term current use of anticoagulant (690853278) Anticoagulated (Z79.01) Active confirmed Vital Signs Temperature 97.7 degrees Fahrenheit 02/27/20 25 Blood pressure systolic 001 mm Hg 02/27/20 Blood pressure diastolic 01 mm Hg 025 Height 67.75 in 02/26/2025 Weight 145.8 lbs 02/26/2025 BMI 22.33 kg/m2 02/26/2025 Encounters Encounter Location Date Provider Diagnosis [facility] [address] [place] [address] 02/26/2025 Yonatan Stallings Jr Colon cancer screening Z12.11 and Anticoagulated Z79.01 Assessments Encounter Date Diagnosis (ICD Code) Assessment Notes Treatment Notes Treatment Clinical Notes Section Notes 02/26/2025 Colon cancer screening (ICD-10 - Z12.11) We discussed colonoscopy today. We discussed risks and benefits of the procedure today. He understands these and agrees to proceed. This will be scheduled at his convenience. 02/26/2025 Anticoagulated (ICD-10 - Z79.01) We discussed colonoscopy today. We discussed risks and benefits of the procedure today. He understands these and agrees to proceed. This will be scheduled at his convenience. Plan Of Treatment Future Test Test Name Order Date COLONOSCOPY 02/26/2025 Next Appt Details Follow Up: 1 Year, Reason: Provider Name:Yoantan garcia Jr, 03/16/2025 10:50:00 AM, [address] [place] [address] , [place], [place], [phone], Progress Notes * KONSTANTIN FREEMAN ConnorDOB: [birth year] (75 yo M)Acc No.[id number]:02/26/2025 Progress Notes Patient: KONSTANTIN RICHARD Provider: Rajni Stallings MD :1950 A ge:75 Y S ex:Male Date:02/26/2025 Address:[address] [facility] [address] [place] [facility] Pcp:JAXSON MILAN Subjective: * Chief Complaints: * 1 . Patient presents today for a COLON SCREENING. * HPI: N ew symptom(s): Mr. Freeman is a pleasant 75-year-old man seen today for his preoperative colonoscopy visit. He has a personal history of colon polyps and last underwent colonoscopy with removal of multiple tubular adenomas up to 15 mm in November 2021. We reviewed this today. 3-year follow-up was recommended. He has no complaints of rectal bleeding or change in his bowel habits. Since we saw him last, he has had a right sided deep venous thrombosis and is currently on Eliquis. We discussed that this will need to be stopped 3 days before the procedure and will check with Dr. Groves regarding this. * ROS: G eneral/Constitutional: Change in appetite d enies. F atigue d enies. ? E NT: Patient denies d ifficulty swallowing. R espiratory: Patient denies s hortness of breath. C ardiovascular: Patient denies c hest pain. G astrointestinal: Comments S [facility] for details. G enitourinary: Difficulty urinating d enies. I ncontinence d enies. M usculoskeletal: Patient denies m uscle aches. S kin: Patient denies p ruritis. N eurologic: Patient denies l ow back pain. P sychiatric: Patient denies m ental or physical abuse. * Medical History: C olon polyps and family history of colon cancer, last colonoscopy 11/23, 3-year follow-up for multiple tubular adenomas, Elevated cholesterol, elevated PSA., DVT. * Surgical History: R ight lower extremity DVT 624 , [place] teeth extraction , achilles tendon repair , L3-4, L4-5 decompression and foraminotomies,09/25 , basal cell removal , back surgery for sciatic nerve 09/25 . * Family History: F ather: , diagnosed with HTN (hypertension). M other: , dx in her 80's, diagnosed with Colon cancer. M aternal uncle: diagnosed with Colon cancer. M aternal aunt: diagnosed with Colon cancer. No family history of liver cancer. * Social History: T obacco Use: T obacco Use/Smoking A re you a: nonsmoker. D rugs/Alcohol: A lcohol Screen D id you have a drink containing alcohol in the past year? Y es, H ow often did you have a drink containing alcohol in the past year? 4 or more times a week (4 points), H ow many drinks did you have on a typical day when you were drinking in the past year??3 or 4 drinks (1 point), H ow often did you have 6 or more drinks on one occasion in the past year? M onthly (2 points), P oints 7 , I nterpretation P ositive. M iscellaneous: M arital status: . Occupation: retired. c igar smoker. * Medications: T aking Eliquis 5 MG Tablet as directed Orally , Notes to Pharmacist: twice a day, Taking Viagra 50 MG Tablet 1 tablet as needed Orally Once a day , Discontinued MiraLax (colon prep) 17 GM/SCOOP Powder mixed with Gatorade or Crystal Light Orally begin at 5:00 p.m. the day before the procedure , Medication List reviewed and reconciled with the patient * Allergies: N .K.D.A. Objective: * Vitals: W t:145.8lbs, Ht: 67.75 in, BMI:22.33Index, BP:001/01mm Hg, Temp:97.7, Wt-k.13. * Examination: G eneral Examination: GENERAL APPEARANCE: i n no acute distress. HEAD: n ormocephalic. EYES: s clera non-icteric. ORAL CAVITY: m ucosa moist. NECK/THYROID: n o lymphadenopathy. SKIN: a nicteric. HEART: S 1, S2 normal, no murmurs. LUNGS: c lear to auscultation bilaterally. CHEST: n ormal shape and expansion. ABDOMEN: s oft, nontender, nondistended, bowel sounds present, no organomegaly . EXTREMITIES: n o clubbing, cyanosis, or edema. PSYCH: c ognitive function intact. Assessment: * Assessment: 1. A nticoagulated - Z79.01 (Primary) 2 . C olon cancer screening - Z12.11? We discussed colonoscopy tod ay. We discussed risks and benefits of the procedure today. He understands these and agrees to proceed. This will be scheduled at his convenience. Plan: * Treatment: 2. C olon cancer screening P rocedure: COLONOSCOPY (Ordered for 02/26/2025) * Procedure Codes: 3 017F COLORECTAL CA SCREEN DOC REV, G9903 Pt scrn tbco id as non user, G8785 BP SCR NOT PRFRM REC REASON NOS * Preventive Medicine: Screenings: F all Risk Screening F all Risk Assessment: T wo or more falls with injury in the past year, S creening: T wo or more falls with injury in the past year,?Assessment: N ot performed, no reason specified, P gil of Care: D ocumented, T ype of fall plan of care: B alance, strength and gait training or instruction provided. * Follow Up: 1 Year * * The named appointment provid er may or may not be the originator of this progress note, and it is not deemed complete until electronically signed by the appointment provider. Sign off status: Pending * Provider: Rajni Stallings MD Date: 0 02/26/2025 Generated for Sin mendoza/Riya/Naliniitting on: 0 03/07/2025 04:46 PM EDT History and Physical Notes * HPI (History of Present Illness) Category Sub-Category Detail Notes Category Not es New symptom(s) Mr. Freeman is a pleasant 75-year-old man seen today for his preoperative colonoscopy visit. He has a personal history of colon polyps and last underwent colonoscopy with removal of multiple tubular adenomas up to 15 mm in November 2021. We reviewed this today. 3-year follow-up was recommended. He has no complaints of rectal bleeding or change in his bowel habits. Since we saw him last, he has had a right sided deep venous thrombosis and is currently on Eliquis. We discussed that this will need to be stopped 3 days before the procedure and will check with Dr. Groves regarding this. Examination Category Sub-Category Detail Notes Category Not es General Examination GENERAL APPEARANCE: in no acute di stress HEAD: normocephalic EYES: sclera non-icteric NECK/THYROID: no lymphadenopathy HEART: S1, S2 normal, no mu rmurs CHEST: normal shape and exp ansion LUNGS: clear to auscultatio n bilaterally ABDOMEN: soft, nontender, non distended, bowel sounds present, no organomegaly SKIN: anicteric EXTREMITIES: no clubbing, cyanosi s, or edema PSYCH: cognitive function i ntact ORAL CAVITY: mucosa moist
--- OUTSIDE RECORDS SUMMARY | 2025-03-07 16:46 | XMS_ITS | Patient Health Record ---
Author Organization [facility] Address [address] [place] [address] Care Team Providers Care End Finder Twisting Department Name Role Phone BJORN, JAXSON Primary Care Provider Yonatan Mcintyre Jr Unavailable [phone] Allergies No Known Allergies Reason For Referral No Information Medications Medication SIG (Take, Route, Fr equency, Duration) Notes Start Date End Date Status Eliquis 5 MG as directed Orally twice a day Active Viagra 50 MG 1 tablet as needed O rally Once a day Active Immunizations Vaccine Route Administration Date Status Comme nts Flu vaccine no Preserv 3 and > Unknown 04/15/2017 Admin istered Influenza Unknown 04/23/2021 Administered Influenza Unknown 03/21/2024 Administered Social History Alcohol Screen Question Answer [...] Positive Section Notes: cigar smoker cigar smoker cigar smoker Problems Problem Type SNOMED Code ICD Code Onset Dates Problem Status W/U Status Risk Notes Problem 072912987 Colon cancer screening (Z12.11) Active confirmed Problem 197190604 Long-term use of aspirin therapy (Z79.82) Active confirmed Problem Long-term current use of anticoagulant (689278757) Anticoagulated (Z79.01) Active confirmed Vital Signs Temperature 97.7 degrees Fahrenheit 02/26/2025 Blood pressure diastolic 01 mm Hg 02/26/2025 Height 67.75 in 02/26/2025 Blood pressure systolic 001 mm Hg 02/26/2025 Weight 145.8 lbs 02/26/2025 BMI 22.33 kg/m2 02/26/2025 Encounters Encounter Location Date Provider Diagnosis [facility] [address] [place] [address] 02/26/2025 Yonatan Stallings Jr Colon cancer screening [...] Date COLONOSCOPY 07/25/2014 COLONOSCOPY 04/06/2018 COLONOSCOPY 10/08/2021 COLONOSCOPY 02/26/2025 Next Appt Details Provider Name:Yonatan garcia Jr, 03/16/2025 10:50:00 AM, [address] [place] [address] , [place], [place], [phone], Insurance Providers Payer Name Payer Address Payer Phone Subscriber Number Group Number Insured Name Patient Relationship to Insured Coverage Start Date Coverage End Date MED[place]ARE OF [place] [address] [place] [address] [id number] KONSTANTIN FREEMAN Self - patient is the insured MEDEX ATTN CLAIMS [address] [place] [phone] [id number] KONSTANTIN FREEMAN Self - patient is the insured Medical (General) History Medical History History ICD Code Colon polyps and family hist ory of colon cancer, last colonoscopy 11/23, 3-year follow-up for multiple tubular adenomas Elevated cholesterol elevated PSA. DVT Surgical History Surgery Date(Month/Year) back surgery for sciatic nerve 09/25 basal cell removal L3-4, L4-5 decompression and foraminotom ies,09/25 achilles tendon repair [place] teeth extraction Right lower extremity DVT 624
[2025-03-14 09:59] VITALS: BMI 22.3
--- NOTE | 2025-03-14 13:55 | P.CONAN_ITS ---
Documented by User: Stephy Quevedo NP 03/14/25 13:55 HPI - Anesthesia Eval Consult details Narrative: 75 yr old male for colonoscopy H/O DVT on eliquis [facility] Active Problems Active Problems: All Active Problems (Updated 02/01/25 @ 09:02 by Delon Jiménez MD) Elevated PSA (Acute) DVT (deep venous thrombosis) (Chronic) Status post lumbar spine surgery for decompression of spinal cord (Acute) Biceps tendon tear (Acute) Post laminectomy syndrome (Acute) Lumbar radiculopathy (Acute) DVT (deep venous thrombosis) (Acute) Elevated cholesterol (Acute) Past Medical History Medical History DVT (deep venous thrombosis) BPH (benign prostatic hyperplasia) Sciatica Basal cell carcinoma Elevated cholesterol Family History Family History (Updated 12/04/24 @ 10:35 by Annia Dale MA) Mother No problems noted. Father No problems noted. Family history of problems with anesthesia: No Surgical History Surgical History History of back surgery Hx of neck surgery Hx of varicose vein ligation Hx of wisdom tooth extraction Hx of Achilles tendon repair H/O colonoscopy (~11/11/21) History of Problems with Anesthesia: No Social History Social History Household Members: Spouse Housing: House Are you a primary primary care coordinator to a significant other at home: No Do you presently have visiting nurse or other home services: No Alcohol intake: current Patient Tobacco Use Status: Former Tobacco user Tobacco use type: Cigar Years Smoked: 30 e-Cigarette/Vaping Use: Currently Using Second Hand Smoke Exposure: No Have you been hit, kicked, punched, or otherwise hurt by someone within the past year? If so, by whom?: No Are you DNR?: No Advance Directives: No Advance Directives Information Provided: Yes Poor oral hygiene: No service: No Current occupational status: retired Cognitive needs: No Hearing needs: No Vision needs: Yes (reading glasses) Meds Allergies Allergy/AdvReac Type Severity Reaction Status Date / Time No Known Allergies Allergy Verified 03/16/25 09:54 Exam Height,Weight and Vital Signs: Height 5 ft 7.75 in Weight 66.134 kg Assessment and Plan Final Anesthetic Review Family History of Problems with Anesthesia: No History of Problems with Anesthesia: No Documented by User: Marleni Navarrete MD 03/16/25 09:58 [facility] Past Medical History Medical History DVT (deep venous thrombosis) BPH (benign prostatic hyperplasia) Sciatica Basal cell carcinoma Elevated cholesterol Family History Family History (Updated 12/04/24 @ 10:35 by Annia Dale MA) Mother No problems noted. Father No problems noted. Surgical History Surgical History History of back surgery Hx of neck surgery Hx of varicose vein ligation Hx of wisdom tooth extraction Hx of Achilles tendon repair H/O colonoscopy (~11/11/21) Social History Social History Household Members: Spouse Housing: House Are you a primary primary care coordinator to a significant other at home: No Do you presently have visiting nurse or other home services: No Alcohol intake: current Patient Tobacco Use Status: Former Tobacco user Tobacco use type: Cigar Years Smoked: 30 e-Cigarette/Vaping Use: Currently Using Second Hand Smoke Exposure: No Have you been hit, kicked, punched, or otherwise hurt by someone within the past year? If so, by whom?: No Are you DNR?: No Advance Directives: No Advance Directives Information Provided: Yes Poor oral hygiene: No service: No Current occupational status: retired Cognitive needs: No Hearing needs: No Vision needs: Yes (reading glasses) Meds Allergies Allergy/AdvReac Type Severity Reaction Status Date / Time No Known Allergies Allergy Verified 03/16/25 09:54 Exam Airway Mallampati Class: II (caps laterally) TM Dist: >3cm Neck ROM: Full Heart: rrr Lungs: cta Assessment and Plan Assessment Anesthesia Assessment: Anesthesia Plan Discussed and Chart Reviewed Final Anesthetic Review NPO: Yes ASA Class: III Final Preanesthetic Review: No Changes in Pt Med Stat, Meds/Allgs Chart Reviewed and Consent Obtained/Reviewed Patient Risk: Low Procedure Risk: Low Anesthetic Plan Anesthetic Plan: MAC: Disposition: Standard PACU
[2025-03-16 09:43] VITALS: BMI 22.0
[2025-03-16] MEDS: Lactated Ringers 1,000 ML 100 ML IVCONT (09:54)
[2025-03-16 09:55] VITALS: BP 151/80; PULSE 64; RESP 18; TEMP 36.6; O2SAT 98
--- NOTE | 2025-03-16 10:41 | MHC.SHP ---
Pre-Procedural Eval Section A - 24 Hr Update-Section A only Date of Service: 03/16/25 Section B - Complete if H&P > 30 days Chief Complaint: screening Details of Present Illness: see H&P no changes Relevant Family History (Specify if Yes): No Relevant Social History: None Present Medications: see Short Stay Collaborative assessment Medical History: No relevant PMH History of Previous Operations: No relevant previous surgery Allergies: Allergies Allergy/AdvReac Type Severity Reaction Status Date / Time No Known Allergies Allergy Verified 03/16/25 09:54 Review of Systems Sugical H&P ROS: Negative: Constitution, Cardiovascular, Respiratory, Neurological, Psychiatric, Hem-Onc, Allergic/Immunologic, Gastrointestinal, Genitourinary, Musculoskeletal, Integumentary, Endocrine and Eyes/Ears/Nose/Throat Exam Surgical H&P Exam: Normal: HEENT, Normal: Heart, Normal: Lungs, Normal: Extremities, Normal: Abdomen, Normal: Skin and Normal: Neurological Plan Diagnosis/Plan: Unchanged I have reviewed the history and physical and performed a pertinent physical examination on my patient. No changes have occurred unless specified. Time Spent With Patient Time: Total time managing care of this patient today ____ minutes.
[2025-03-16 11:24] VITALS: BP 90/58; PULSE 67; RESP 16; TEMP 36.2; O2SAT 96
[2025-03-16 11:39] VITALS: BP 115/67; PULSE 67; RESP 16; TEMP 36.3; O2SAT 97
--- NOTE | 2025-03-16 11:59 | OP_ITS ---
DATE OF SERVICE: 03/16/2025 SURGEON: Yonatan Stallings MD INDICATIONS: Colon cancer screening and prior history of adenomatous colon polyps PREOPERATIVE DIAGNOSIS: POSTOPERATIVE DIAGNOSIS: PROCEDURE PERFORMED: Colonoscopy to the cecum with snare polypectomy. ESTIMATED BLOOD LOSS: COMPLICATIONS: ANESTHESIA: Monitored anesthesia care. ASSISTANTS: SPECIMENS: DESCRIPTION OF PROCEDURE: A history and physical was performed. The risks and benefits of the procedure were explained to the patient, and informed consent was obtained. The patient was placed in the left lateral decubitus position. A digital rectal exam was performed and was found to be normal. The Olympus pediatric video colonoscope was introduced into the rectum and advanced to the cecum. The cecum was identified by transillumination, palpation, and identification of the ileocecal valve. Examination was performed. The scope was removed. He tolerated the procedure well and was returned to the recovery area in stable condition. FINDINGS: The terminal ileum was not examined. The visualized colonic mucosa was within normal limits without evidence of masses or ulcers. A single polyp measuring approximately 5 mm was identified and removed with a cold snare. This was located at 60 cm. No other polyps were identified. Retroflexed examination showed some small internal hemorrhoids. There was diverticulosis of the sigmoid. IMPRESSION: Colon polyp. RECOMMENDATION: Follow up the biopsy results. MD SAVI Cosby/LISY / [id number]
== END 2025-03-16 12:23 | disposition home or self-care (01) ==
PROVIDERS: PCP Internal Medicine; Visit Provider Internal Medicine Gastroenterology
PROC: 0DJD8ZZ Inspection of Lower Intestinal Tract, Via Natural or Artificial Opening Endoscopic (ICD-10-PCS; CPT 45378; principal; 2025-03-16 10:50)
DX: Z12.11 Encounter for screening for malignant neoplasm of colon (principal); D12.4 Benign neoplasm of descending colon; K57.30 Diverticulosis of large intestine without perforation or abscess without bleeding; K64.8 Other hemorrhoids; Z86.0101 Personal history of adenomatous and serrated colon polyps; Z80.0 Family history of malignant neoplasm of digestive organs; E78.5 Hyperlipidemia, unspecified; Z86.718 Personal history of other venous thrombosis and embolism; Z79.01 Long term (current) use of anticoagulants; Z79.899 Other long term (current) drug therapy
CPT/HCPCS: 45385; 88305; J2003; J2704

== ENCOUNTER 2025-04-24 10:02 | Outpatient (AMB) | payer MEDICARE, SELFPAY ==
--- OUTSIDE RECORDS SUMMARY | 2025-03-16 06:50 | XMS_ITS ---
Author Organization [facility] Address [address] [place] [address] Care Team Providers Care Television Production Technician Name Role Phone JAXSON MILAN Primary Care Provider Yonatan Mcintyre Jr REASON FOR VISIT screening Encounters Encounter Location Date Provider Diagnosis [facility] Outpatient [address] [place], [place] [address] [id number] 03/16/2025 Yonatan Stallings Jr Plan Of Treatment No Information Progress Notes * KONSTANTIN FREEMANDOB: [birth year] (75 yo M)Acc No.[id number]:03/16/2025 COLON WITH MAC Patient: Hyacinth SHELBYYULIYAKONSTANTIN Provider: Rajni Stallings MD :1950 A ge:75 Y S ex:Male Date:03/16/2025 [address] [facility] [address] [facility] Pcp:JAXSON MILAN Subjective: * Chief Complaints: * 1 . Screening. * Medical History: Objective: * Vitals: Assessment: Plan: * Treatment: * * The named appointment provid er may or may not be the originator of this progress note, and it is not deemed complete until electronically signed by the appointment provider. Sign off status: Pending * Provider: Rajni Stallings MD Date: 0 03/16/2025 Generated for Printi ng/Faxing/eTransmitting on: 1 11:42 AM EDT
--- NOTE | 2025-04-24 10:07 | A.OFFPC_ITS ---
Vital Signs 04/24/25 10:12 Height 5 ft 6.14 in Weight 145 lb BMI 23.3 BP 160/68 H Blood Pressure Location Lt brachial Position Sitting Respiration 18 Pulse 70 Pulse Source Pulse Oximeter Temp 97.7 F Temp Source Temporal Artery Scan Pulse Oximetry (%) 98 Oxygen Delivery Method Room Air Intake Visit Reasons: 4 month f/u Respiratory Care Faculty Required: No Accompanied by: Self / Same As Patient Allergies No Known Allergies Allergy (Verified 04/24/25 10:07) Medication List - Last Reconciled 04/24/25 by Eddie Cuellar MD apixaban (Eliquis) 5 mg PO BID clobetasol 0.05% topical ketoconazole 2% topical sildenafil 50 mg PO .prn PRN 30 days Tobacco use date assessed: 12/04/24 Dental Screening Dental Screen Date: 12/04/24 HPI HPI Comments History of Present Illness Details The patient is a 75-year-old male presenting with concerns related to the aftermath of chronic cigar smoking, involving persistent mucus buildup and phlegm production. The issue began at the end of the previous year, transferring from the sinuses to the lungs, characterized chiefly by morning expectoration. The patient smoked two to three cigars daily for 25 years and ceased smoking four months prior to this visit. The condition has seen partial improvement in recent weeks, potentially linked to cessation of cigar use. Additionally, the patient has a known history of deep vein thrombosis following lumbar surgery performed last September or October, requiring lifelong anticoagulation, with apixaban as the current treatment. For erectile dy sfunction, sildenafil is used on an as-needed basis. The patient also reports a recent bout of pruritus, primarily affecting the scalp and around the clavicle, which began approximately three months ago without any identifiable external changes such as new detergents or soaps. Medical History: - Chronic bronchitis secondary to prolon ged cigar smoking - Deep vein thrombosis post lumbar surge ry - Erectile dysfunction - Chronic pruritus - Hyperlipidemia - Hypertension Surgical History: - Lumbar surgery (September or October of prev ious year) Medications: - Apixaban (Eliquis) for history of DVT - Sildenafil (as needed) for erectile dy sfunction Diagnostic Results: - Labs: PSA elevated to 5, borderline el evated - Tests and Diagnostics: Recent colonosc opy a month ago with one benign polyp found Social History: - History of smoking cigars for 25 years , two to three cigars daily, ceased four months ago [facility] Medical History (Updated 04/24/25 @ 10:51 by Eddie Cuellar MD) Hypertension Hyperlipidemia Tobacco use disorder Pruritus DVT (deep venous thrombosis) BPH (benign prostatic hyperplasia) Sciatica Basal cell carcinoma Elevated cholesterol Surgical History (Updated 03/28/25 @ 05:16 by Lucio Styles MD) History of back surgery Hx of neck surgery Hx of varicose vein ligation Hx of wisdom tooth extraction Hx of Achilles tendon repair H/O colonoscopy (03/16/25) Family History (Updated 12/04/24 @ 10:35 by Annia Dale MA) Mother No problems noted. Father No problems noted. Social History Household Members: Spouse Housing: House Are you a primary personal care home administrator to a significant other at home: No Do you presently have visiting nurse or other home services: No Alcohol intake: current Patient Tobacco Use Status: Former Tobacco user Tobacco use type: Cigar Years Smoked: 30 e-Cigarette/Vaping Use: Currently Using Second Hand Smoke Exposure: No service: No Current occupational status: retired Cognitive needs: No Hearing needs: No Vision needs: Yes (reading glasses) Questionnaire Thrive Questionnaire Date Thrive assessed: 12/04/24 DAYANA-7 AMB Questionnaire DAYANA-7 Date DAYANA - 7 assessed: 12/04/24 Source: Developed by Drs. Tyler Harvey, Tierra Castro, Jorgito Cardenas and colleagues, with an educational elroy from [employer]. Review of Systems Narrative - Respiratory: Reports mucus buildup and phlegm production, primarily in the mornings - Cardiovascular: Denies exertional chest pain but reports long-standing hypertension - Genitourinary: Erectile dysfunction treated with sildenafil - Dermatological: Reports pruritus of the scalp and clavicle area All systems reviewed & are unremarkable except as reviewed in HPI and above Physical exam (Primary Care) Vital Signs: Last Vital Signs Temp 97.7 F 04/24/25 10:12 Pulse 70 04/24/25 10:12 Resp 18 04/24/25 10:12 BP 160/68 H 04/24/25 10:12 Pulse Ox 98 04/24/25 10:12 Oxygen Delivery Method Room Air 04/24/25 10:12 BMI result Body Mass Index 23.3 Tobacco/Smoking Status: Tobacco use Status Tobacco use date assessed 12/04/24 04/24/25 10:10 Patient Tobacco Use Status Former Tobacco user 04/24/25 10:10 Tobacco use type Cigar 04/24/25 10:10 e-Cigarette/Vaping Use Currently Using 04/24/25 10:10 Thrive Assessment: Date of Thrive Assessment Date Thrive assessed 12/04/24 04/24/25 10:10 Narrative General: +Alert and oriented, Well nourished, No acute distress. Eye: Pupils are equal, round and reactive to light, Intact accommodation, Extraocular movements are intact, Normal conjunctiva, Vision unchanged. HENT: Normocephalic, Atraumatic, Tympanic membranes are clear, Normal hearing, Oral mucosa is moist, No pharyngeal erythema, Ear canals patent. Respiratory: Lungs CTA bilaterally, No wheeze, Respirations are non-labored, Noted mucus buildup in sinuses and lungs, especially in the morning. Cardiovascular: Regular rate, Regular rhythm, S1 auscultated, S2 auscultated, No murmur, Good pulses equal in all extremities, Normal peripheral perfusion, No edema, Blood pressure elevated at 166/XX. Gastrointestinal: Soft, Non-tender, Non-distended, Normal bowel sounds, No organomegaly. Musculoskeletal: Normal range of motion, Normal strength, No tenderness, No swelling, No deformity, Normal gait. Integumentary: Warm, Dry, [place], Intact, Itchy scalp with scabbing in a couple of spots, Itching around clavicle. Neurologic: Alert, Oriented, Normal sensory, Normal motor function, No focal defects, Cranial Nerves II-XII are grossly intact, Normal deep tendon reflexes. Psychiatric: Cooperative, Appropriate mood & affect, Normal judgment. Coding Level of Care Code Est Pt Level 4 (15020) Complex EM visit Add On G2211 Diagnoses Deep vein thrombosis (DVT) of other vein of lower extremity, unspecified chronicity, unspecified laterality I82.499 DVT location: lower extremity Affected thrombotic vein of extremity: other lower extremity vein Chronicity: unspecified Laterality: unspecified laterality Pruritus L29.9 Tobacco use disorder F17.200 Other hyperlipidemia E78.49 Hyperlipidemia type: other hyperlipidemia Elevated PSA R97.20 Hypertension, unspecified type I10 Hypertension type: unspecified Assessment & Plan Assessment & Plan (1) DVT (deep venous thrombosis): Comment: - Plan to continue apixaban indefinitely given recurrent DVTs Code(s): I82.409 - Acute embolism and thrombosis of unspecified deep veins of unspecified lower extremity Category: Medical Qualifiers: DVT location: lower extremity Affected thrombotic vein of extremity: other lower extremity vein Chronicity: unspecified Laterality: unspecified laterality Qualified Code(s): I82.499 - Acute embolism and thrombosis of other specified deep vein of unspecified lower extremity (2) Pruritus: Comment: - Provided hydroxyzine for symptomatic relief, discussing its use as needed. Code(s): L29.9 - Pruritus, unspecified Category: Medical (3) Tobacco use disorder: Comment: - Over 15 pack smoking history - Quit 4 months ago - Will refer to Lung Cancer Screening Code(s): F17.200 - Nicotine dependence, unspecified, uncomplicated Category: Medical (4) Hyperlipidemia: Comment: - Initiated atorvastatin to lower cholesterol levels, discussing cardiovascular risk reduction. Code(s): E78.5 - Hyperlipidemia, unspecified Category: Medical Qualifiers: Hyperlipidemia type: other hyperlipidemia Qualified Code(s): E78.49 - Other hyperlipidemia (5) Elevated PSA: Comment: - Advised follow-up with the urologist, Dr. Jiménez, for scheduled ultrasound and further evaluation based on prior elevated PSA reading. Code(s): R97.20 - Elevated prostate specific antigen [PSA] Category: Medical (6) Hypertension: Comment: - Recommended home blood pressure monitoring for two weeks and instructed reporting through the patient portal to determine if antihypertensive therapy is necessary. Code(s): I10 - Essential (primary) hypertension Category: Medical Qualifiers: Hypertension type: unspecified Qualified Code(s): I10 - Essential (primary) hypertension Plan: Health Maintenance: - Recommended lung cancer screening with a low-dose CT scan due to significant smoking history. - Initiated atorvastatin for cardiovascular risk reduction. Patient was informed and verbally consented to the use of an ambient scribe for clinic note documentation during this visit. Plan During the visit, I addressed the patient's chronic bronchitis symptoms, associated with a long history of cigar smoking. Emphasizing benefits of smoking cessation and use of humidifiers, I reassured about gradual improvement of symptoms. I explained the necessity of lifelong use of apixaban due to repeated DVT occurrences and addressed the patient's pruritus potentially related to another cause, offering hydroxyzine for relief. Further, I began atorvastatin for hyperlipidemia to reduce cardiovascular risks and discussed home blood pressure monitoring to better assess hypertension management. For the elevated PSA levels, follow-up with the urologist was advised. Lung cancer screening was suggested due to the patient's extensive smoking history. Each intervention was made considering recent findings and patient history, ensuring informed consent and understanding were garnered throughout our discussion. Orders: Referrals Lung Cancer Screening Referral F17.200 - Nicotine dependence, unspecified, uncomplicated Medications: New hydroxyzine HCl 25 mg PO BID PRN 90 tabs 0RF itching atorvastatin (Lipitor) 20 mg PO BEDTIME 90 tabs 0RF Refilled sildenafil 30 minutes prior sexual activity 50 mg PO .prn PRN 10 tabs 3RF prn 30 days Patient Instructions: - Quit smoking and avoid all tobacco products. - Use a humidifier at home and allow mucous to come up without suppressing cough. - Continue taking apixaban as prescribed for DVT. - Take hydroxyzine as needed for itching. - Start atorvastatin as prescribed to lower cholesterol. - Monitor your blood pressure at home daily for two weeks and report readings. - Follow up with urologist Dr. Jiménez for PSA evaluation. - Complete a scheduled low-dose CT scan for lung cancer screening. - Contact the pharmacy for medication refills or use the patient portal for communication.
[2025-04-24 10:12] VITALS: BP 160/68; PULSE 70; RESP 18; TEMP 36.5; O2SAT 98; BMI 23.3
--- OUTSIDE RECORDS SUMMARY | 2025-04-24 11:42 | XMS_ITS | Patient Health Record ---
Author Organization [facility] Address [address] [place] [address] Care Team Providers Care Scale Shooter Name Role Phone BJORN, KARTIK Primary Care Provider Yonatan Mcintyre Jr Unavailable Allergies No Known Allergies Results Component Value Reference Range Notes Pathology Reviewed date:03/28/2025 08:16:30 AM Interpretation: Performing Lab:[facility], [address] [place] [id number] Notes/Report: Reason For Referral No Information Medications Medication [...] Problem Status W/U Status Risk Notes Problem Colon cancer screening (713635281) Colon cancer screening (Z12.11) Active confirmed Problem Long-term current use of antiplatelet drug (789351558327006) Long-term use of aspirin therapy (Z79.82) Active confirmed Problem Long-term current use of anticoagulant (567032894) Anticoagulated (Z79.01) Active confirmed Vital Signs Temperature 97.7 degrees Fahrenheit 02/26/2025 Blood pressure diastolic 01 mm Hg 02/26/2025 Height 67.75 in 02/26/2025 Blood pressure systolic 001 mm Hg 02/26/2025 Weight 145.8 lbs 02/26/2025 BMI 22.33 kg/m2 02/26/2025 Encounters Encounter Location Date Provider [place] [facility] [place] [address] [place] [phone] [place]/16/2025 Yonatan Stallings Jr [facility] [address] [place] [phone] 02/26/2025 Yonatan Stallings Jr Colon cancer screening Z12.11 and Anticoagulated Z79.01 [facility] [address] [place] [phone] 03/28/2025 Yonatan Stallings Jr Assessments Encounter Date Diagnosis (ICD Code) Assessment [...] 07/25/2014 COLONOSCOPY 04/06/2018 COLONOSCOPY 10/08/2021 COLONOSCOPY 02/26/2025 Insurance Providers Payer Name Payer Address Payer Phone Subscriber Number Group Number Insured Name Patient Relationship to Insured Coverage Start Date Coverage End Date MEDICARE OF [place] [address] [place] [address] [id number] KONSTANTIN FREEMAN Self - patient is the insured MED[employer] ATTN CLAIMS [address] [place] [address] [id number] KONSTANTIN FREEMAN Self - patient is the insured Medical (General) History Medical History History ICD Code Colon polyps and family hist ory of colon cancer, last colonoscopy 11/23, 3-year follow-up for multiple tubular adenomas Elevated cholesterol elevated PSA. DVT Surgical History Surgery Date(Month/Year) back surgery for sciatic nerve 09/25 basal cell removal L3-4, L4-5 decompression and foraminotom ies,09/25 achilles tendon repair [place] teeth extraction Right lower extremity DVT 624
== END 2025-04-24 10:41 | disposition home or self-care (01) ==
PROVIDERS: PCP Student in an Organized Health Care Education/Training Program; Visit Provider Student in an Organized Health Care Education/Training Program
DX: I82.499 Acute embolism and thrombosis of other specified deep vein of unspecified lower extremity (principal); L29.9 Pruritus, unspecified; F17.200 Nicotine dependence, unspecified, uncomplicated; E78.49 Other hyperlipidemia; R97.20 Elevated prostate specific antigen [PSA]; I10 Essential (primary) hypertension

== ENCOUNTER → 2025-04-24 10:02 | Outpatient (BNVA) | payer MEDICARE, SELFPAY | PROVIDERS: PCP Internal Medicine; Visit Provider Student in an Organized Health Care Education/Training Program | DX: I82.499 Acute embolism and thrombosis of other specified deep vein of unspecified lower extremity (principal); L29.9 Pruritus, unspecified; E78.49 Other hyperlipidemia; R97.20 Elevated prostate specific antigen [PSA]; I10 Essential (primary) hypertension; N52.9 Male erectile dysfunction, unspecified; J41.0 Simple chronic bronchitis; F17.290 Nicotine dependence, other tobacco product, uncomplicated; Z79.01 Long term (current) use of anticoagulants; Z71.6 Tobacco abuse counseling | CPT/HCPCS: 99212 ==

== ENCOUNTER 2025-06-27 10:14 | Outpatient (REF) | payer MEDICARE, SELFPAY ==
--- OUTSIDE RECORDS SUMMARY | 2025-03-16 05:50 | XMS_ITS ---
Author Organization [facility] Address [address] [place] [address] Care Team Providers Care Thresher Broomcorn Name Role Phone JAXSON MILAN Primary Care Provider Yonatan Mcintyre Jr REASON FOR VISIT screening Encounters Encounter Location Date Provider Diagnosis [facility] Outpatient [address] [place], [place] [address] [place] [id number] 03/16/2025 Yonatan Stallings Jr Plan Of Treatment No Information Progress Notes * KONSTANTIN FREEMANDOB: [birth year] (75 yo M)Acc No.[id number]:03/16/2025 COLON WITH MAC Patient: Hyacinth SHELBYYULIYAKONSTANTIN Provider: Rajni Stallings MD :1950 A ge:75 Y S ex:Male Date:03/16/2025 Address:[address] [facility] [address] [place], [place] Pcp:JAXSON MILAN Subjective: * Chief Complaints: * S creening Billing Information: * Procedure Codes: * The named appointment provid er may or may not be the originator of this progress note, and it is not deemed complete until electronically signed by the appointment provider. Sign off status: Pending * Provider: Rajni Stallings MD Date: 0 03/16/2025 Generated for Printi ng/Faxing/eTransmitting on: 1 08/28/2024 10:23 AM EST
--- OUTSIDE RECORDS SUMMARY | 2025-06-27 10:24 | XMS_ITS | Patient Health Record ---
Author Organization [facility] Address [address] [place] [address] Care Team Providers Care Clinical Haematologist Name Role Phone BJORN, KARTIK Primary Care Provider Yonatan Mcintyre Jr Unavailable Allergies No Known Allergies Results Component Value Reference Range Notes Pathology Reviewed date:03/28/2025 08:16:30 AM Interpretation: Performing Lab:[facility], [address] [place] [phone] Notes/Report: Reason For Referral No Information Medications Medication SIG (Take, Route, Frequency, Duration) Notes Start Date End Date Status Eliquis 5 MG Tablet as directed Orally twice a day Active Viagra 50 MG Tablet 1 tablet as needed O rally Once a day Active Immunizations Vaccine Route Administration Date Status Comme nts Flu vaccine no Preserv 3 and > Unknown 04/15/2017 Admin istered Influenza Unknown 04/23/2021 Administered Influenza Unknown 03/21/2024 Administered Social History Social History Drugs/Alcohol: Social Info Question Answer Notes Alcohol Screen Did you have a drink containing alcohol in the past year? Yes How often did you have a drink containing [...] Monthly (2 points) Points 7 Interpretation Positive Additional Details Category Social Info Options Details Miscellaneous: Marital status: Occupation: retired Section Notes: cigar smoker cigar smoker cigar smoker Problems Problem Type SNOMED Code ICD Code Onset Dates Problem Status W/U Status Risk Notes Problem Colon cancer screening (385933992) Colon cancer screening (Z12.11) Active confirmed Problem Long-term current use of antiplatelet drug (262149628433095) Long-term use of aspirin therapy (Z79.82) Active confirmed Problem Long-term current use of anticoagulant (624094085) Anticoagulated (Z79.01) Active confirmed Vital Signs Temperature 97.7 degrees Fahrenheit 02/26/2025 Blood pressure diastolic 01 mm Hg 02/26/2025 Height 67.75 in 02/26/2025 Blood pressure systolic 001 mm Hg 02/26/2025 Weight 145.8 lbs 02/26/2025 BMI 22.33 kg/m2 02/26/2025 Encounters Encounter Location Date Provider Diagnosis [facility] [place] [address] [place] [id number] 03/16/2025 Yonatan Stallings Jr [facility] [address] [place] [phone] 02/26/2025 Yonatan Stallings Jr Colon cancer screening Z12.11 and Anticoagulated Z79.01 [facility] [address] [place] [phone] 03/28/2025 Yonatan Stallings Jr Assessments Encounter Date [...] [place] [address] [place] [address] [id number] KONSTANTIN FREEMAN Self - patient is the insured vivio ATTN CLAIMS [address] [place] [address] [id number] KONSTANTIN FREEMAN Self - patient is the insured Medical (General) History Medical History History ICD Code Colon polyps and family hist ory of colon cancer, last colonoscopy 11/23, 3-year follow-up for multiple tubular adenomas Elevated cholesterol elevated PSA. DVT Surgical History Surgery Date(Month/Year) Right lower extremity DVT 624 [place] teeth extraction achilles tendon repair L3-4, L4-5 decompression and foraminotom ies,09/25 basal cell removal back surgery for sciatic nerve 09/25
[2025-06-27 11:38] LABS: PSA,Total (Free>4and<10) 5.05 ng/mL (0.00-4.00)
[2025-06-29 12:59] LABS: Free Prostate Spec Ag 0.9 ng/mL; Percent Free Prostate Spec Ag 18 % (calc) (>25)
== END 2025-06-27 10:15 | disposition home or self-care (01) ==
LOC: HO.10HDL 10:14
PROVIDERS: Visit Provider Urology
DX: R97.20 Elevated prostate specific antigen [PSA] (principal); Z12.5 Encounter for screening for malignant neoplasm of prostate
CPT/HCPCS: 36415; 84153; 84154